=== PATIENT | female | born 1990 | race Caucasian/White ===

== ENCOUNTER 2017-06-29 20:29 | Inpatient (IN) | payer OTHER ==
[~2017-06-29] VITALS: Ht 157.4 cm; Wt 49.2 kg
[~2017-06-29 20:29] MED LIST: AMOXICILLIN250 MG PO; AMOXICILLIN500 M2 PO; BACTRIM DS 8001 TA1 PO; CIPRO250 MG PO; LANTUS SOL100 UNIT/1 SQ; LANTUS100 U/ML SC; MOTRIN400 MG PO; MOTRIN600 MG PO; NOVOLIN N100 U/ML SC; NOVOLOG FLEX100 U/ML SC; NOVOLOG1 UNIT/0.0 SC; NOVOLOG10 ML SQ; OFLOXACIN OTIC5 ML IA; PRENATAL1 TA1 PO; ULTRAM50 MG PO; ZOFRAN ODT4 MG SL
[2017-06-29 20:31] VITALS: BP 129/93
[2017-06-29 21:02] LABS: BASO # 0.2 10*3/uL (0.0-0.1); BASO % 1.2 % (0.0-1.0); EOS % 0.3 % (1.0-4.0); HEMATOCRIT 46.5 % (37.0-47.0); HEMOGLOBIN 15.2 g/dl (12.0-16.0); LYMPH # 3.9 10*3/uL (1.3-4.4); LYMPH % 31.5 % (27.0-41.0); MEAN CELL VOLUME 89.8 fl (81.0-99.0); MEAN CORPUSCULAR HGB 29.3 pg (27.0-31.0); MEAN CORPUSCULAR HGB CONC 32.7 g/dl (33.0-37.0); MEAN PLATELET VOLUME 9.4 fl (9.6-12.3); MONO # 0.6 10*3/uL (0.1-1.0); MONO % 4.6 % (3.0-9.0); NEUT # 7.6 10*3/uL (2.3-7.9); NEUT % 61.7 % (47.0-73.0); PLATELET COUNT AUTOMATED 439 10*3/uL (130-400); RED BLOOD COUNT 5.18 10*6/uL (4.10-5.10); RED CELL DISTRI WIDTH 13.3 % (0-14.5); WHITE BLOOD COUNT 12.3 10*3/uL (4.8-10.8)
[2017-06-29 21:05] VITALS: BP 131/93
[2017-06-29 21:15] VITALS: BP 131/93
[2017-06-29 21:19] LABS: ALBUMIN 3.5 gm/dl (3.1-4.5); CREATININE 1.38 mg/dL (0.55-1.02); POTASSIUM 4.1 mmol/L (3.5-5.1); TOTAL PROTEIN 8.4 gm/dL (6.4-8.2)
[2017-06-29 21:30] VITALS: BP 128/86
[2017-06-29 22:40] VITALS: BP 127/100
[2017-06-29 22:41] VITALS: BP 133/90
[2017-06-29 22:51] LABS: BILIRUBIN NEGATIVE (NEGATIVE); BLOOD 3+ (NEGATIVE); CLARITY CLEAR (CLEAR); COLOR YELLOW (YELLOW); GLUCOSE 3+ (NEGATIVE); KETONE 3+ (NEGATIVE); LEUKO ESTERASE NEGATIVE (NEGATIVE); NITRITE NEGATIVE (NEGATIVE); UROBILINOGEN 0.2 E.U./dl (0.2-1.0)
[2017-06-29 22:59] LABS: BACTERIA TRACE; EPITHELIAL CELLS 16-20
--- NOTE | 2017-06-29 23:58 | NUR ---
A 26, admitted to ICCU, under the services of REY Stephenson MD with a diagnosis of DKA. Chief complaint is NAUSEA. Patient arrived via stretcher from ER. Monitor applied. Initial assessment completed. Vital signs taken and recorded. REY STEPHENSON MD notified of admission to the unit. Orders received. See assessment for past medical history, medications and allergies. Patient and/or family oriented to unit. [facility] ICCU visitation policy reviewed. Clothing/patient valuable form completed. REINA EPPS
[2017-06-30] VITALS: BP 124/90
[2017-06-30 02:23] LABS: BUN 10 mg/dl (7-24); CHLORIDE 109 mmol/L (98-107); CREATININE 1.06 mg/dL (0.55-1.02); POTASSIUM 3.5 mmol/L (3.5-5.1); SODIUM 141 mmol/L (136-145)
[2017-06-30 04:00] VITALS: BP 128/87
[2017-06-30 06:00] LABS: BUN 9 mg/dl (7-24); CHLORIDE 113 mmol/L (98-107); CREATININE 1.02 mg/dL (0.55-1.02); POTASSIUM 3.4 mmol/L (3.5-5.1); SODIUM 141 mmol/L (136-145)
--- NOTE | 2017-06-30 07:28 | NUR ---
Shift chart check completed.24 HR chart check completed.
[2017-06-30 08:00] VITALS: BP 110/80
--- NOTE | 2017-06-30 08:30 | NUR ---
PARTNER ALLIANCE MANAGER VS. SLEEPING SOUNDLY. NURSE STATES PT NOT FEELING WELL. WILL FOLLOW FOR DC NEEDS.
--- NOTE | 2017-06-30 08:32 | NUR ---
ON ASSESSMENT PATIENT DROWSY BUT ORIENTED. SKIN WARM AND DRY. NO N/V AT THIS TIME. IV FLUIDS CONTINUE (D5.45NS) AT 200ML/HR. INSULIN DRIP IS AT 2UNITS/HR WITH BSBS AT 0812 OF 169. SEE ALL APPROPRIATE INTERVENTIONS.
[2017-06-30 10:03] LABS: BUN 8 mg/dl (7-24); CHLORIDE 112 mmol/L (98-107); CREATININE 0.99 mg/dL (0.55-1.02); POTASSIUM 3.5 mmol/L (3.5-5.1); SODIUM 139 mmol/L (136-145)
[2017-06-30 12:00] VITALS: BP 112/70
--- NOTE | 2017-06-30 12:44 | NUR ---
DR BUI (DR GHOSH'S RESIDENT) NOTIFIED THAT PT ASKING TO EAT. REVIEWED HER LABS AND GLUCOMETERS WITH HIM.
--- NOTE | 2017-06-30 13:34 | NUR ---
DR GHOSH HAS VISITED.
--- NOTE | 2017-06-30 14:08 | NUR ---
PT ATE ALL OF HER LUNCH. DR BUI HAD ENTERED ORDERS TO D/C INSULIN DRIP BUT WANTED HER TO HAVE SUBQ INSULIN FIRST. BSBS DONE-185, COVERED PER THE SLIDING SCALE WITH 3 UNITS HUMALOG INSULIN SUBQ. INSULIN DRIP CONTINUES AT 2UNITS/HR.
[2017-06-30 14:16] LABS: BUN 7 mg/dl (7-24); CHLORIDE 106 mmol/L (98-107); CREATININE 0.98 mg/dL (0.55-1.02); POTASSIUM 3.2 mmol/L (3.5-5.1); SODIUM 136 mmol/L (136-145)
[2017-06-30 16:00] VITALS: BP 115/66
[2017-06-30 20:00] VITALS: BP 111/77
--- NOTE | 2017-06-30 20:07 | NUR ---
1930 RESTING IN BED WITH EYES CLOSED. APPEARS TO BE SLEEPING. AWAKENS EASILY. NO C/O'S VOICED. IV FLUIDS AND K PHOSPH CONT. PULSE OX 98% ON RA. NO DISTRESS NOTED.
--- NOTE | 2017-06-30 22:10 | NUR ---
2129 TYLENOL 2 PO GIVEN FOR C/O'S PAIN UPPER BACK AND ALSO H/A, WILL MONITOR. 2209 RESTING IN BED WITH EYES CLOSED. EARLIER TYELNOL EFFECTIVE. KPAD INTACT TO BACK.
[2017-07-01] VITALS: BP 103/62
--- NOTE | 2017-07-01 01:28 | NUR ---
0000 RESTING IN BED WITH EYES CLOSED. APPEARS TO BE SLEEPING.
--- NOTE | 2017-07-01 02:07 | NUR ---
RESTING IN BED WITH EYES CLOSED. APPEARS TO BE SLEEPING.
[2017-07-01 04:00] VITALS: BP 101/71
[2017-07-01 04:35] LABS: BASO # 0.1 10*3/uL (0.0-0.1); BASO % 0.7 % (0.0-1.0); EOS # 0.2 10*3/uL (0.0-0.4); EOS % 1.8 % (1.0-4.0); LYMPH # 4.7 10*3/uL (1.3-4.4); LYMPH % 43.6 % (27.0-41.0); MEAN CELL VOLUME 87.6 fl (81.0-99.0); MEAN CORPUSCULAR HGB 29.2 pg (27.0-31.0); MEAN CORPUSCULAR HGB CONC 33.3 g/dl (33.0-37.0); MEAN PLATELET VOLUME 8.9 fl (9.6-12.3); MONO # 0.7 10*3/uL (0.1-1.0); MONO % 6.2 % (3.0-9.0); NEUT # 5.1 10*3/uL (2.3-7.9); NEUT % 47.3 % (47.0-73.0); PLATELET COUNT AUTOMATED 311 10*3/uL (130-400); RED BLOOD COUNT 3.87 10*6/uL (4.10-5.10); RED CELL DISTRI WIDTH 13.2 % (0-14.5); WHITE BLOOD COUNT 10.7 10*3/uL (4.8-10.8)
[2017-07-01 04:40] LABS: HEMATOCRIT 33.9 % (37.0-47.0); HEMOGLOBIN 11.3 g/dl (12.0-16.0)
[2017-07-01 05:05] LABS: ALBUMIN 2.5 gm/dl (3.1-4.5); ALKALINE PHOSPHATASE 104 U/L (45-117); BUN 6 mg/dl (7-24); CHLORIDE 111 mmol/L (98-107); CREATININE 0.71 mg/dL (0.55-1.02); MAGNESIUM 1.7 mg/dL (1.5-2.1); PHOSPHOROUS 1.4 mg/dL (2.5-4.9); POTASSIUM 3.2 mmol/L (3.5-5.1); SGOT/AST 13 IU/L (3-35); SGPT/ALT 13 U/L (12-78); SODIUM 141 mmol/L (136-145); TOTAL PROTEIN 5.4 gm/dL (6.4-8.2)
--- NOTE | 2017-07-01 06:11 | NUR ---
SLEPT WELL THIS SHIFT. REMAINS WITHOUT C/O'S. HEP LOCK INTACT. IV FLUIDS DONE. CONDITION GUARDED.
[2017-07-01 08:00] VITALS: BP 111/75
--- NOTE | 2017-07-01 08:34 | NUR ---
Awakened for VS. K+ at 3.2 . Potassium rish foods encouraged.
--- NOTE | 2017-07-01 10:15 | NUR ---
Dr. Huang in to evaulate. discharge pending dr. Edwards visit and completion of K-Phos
--- NOTE | 2017-07-01 11:42 | NUR ---
Dr. Edwards in . Dischage pending.
[2017-07-01] MEDS ORDERED: LANTUS SOL100 UNIT/1 SQ (13:02)
[2017-07-01] MEDS ORDERED: NOVOLOG10 ML SQ (13:02)
--- NOTE | 2017-07-01 15:02 | NUR ---
K-Phos complete . Discharge instruction given . Voiced understanding. Discharged to home.
== END 2017-07-01 15:05 | disposition home or self-care (01) | DRG 637 ==
LOC: ED 20:29 → EDHOLD 22:22 → ICCU 22:22
PROVIDERS: Internal Medicine Hospice and Palliative Medicine; Physician Assistant; ADMIT Internal Medicine
DX: E10.10 Type 1 diabetes mellitus with ketoacidosis without coma (principal); N17.0 Acute kidney failure with tubular necrosis; R65.11 Systemic inflammatory response syndrome (SIRS) of non-infectious origin with acute organ dysfunction; G93.41 Metabolic encephalopathy; E87.8 Other disorders of electrolyte and fluid balance, not elsewhere classified; E83.39 Other disorders of phosphorus metabolism; E87.6 Hypokalemia; D47.3 Essential (hemorrhagic) thrombocythemia; R31.29 Other microscopic hematuria; E10.65 Type 1 diabetes mellitus with hyperglycemia; F17.210 Nicotine dependence, cigarettes, uncomplicated; Z80.3 Family history of malignant neoplasm of breast; Z71.6 Tobacco abuse counseling; Z79.4 Long term (current) use of insulin

== ENCOUNTER 2017-07-19 18:49 | Inpatient (IN) | payer OTHER ==
[~2017-07-19] VITALS: Ht 157.4 cm; Wt 48.1 kg
--- NOTE | ~2017-07-19 | WRIGHTHP ---
[place], [place] PATIENT HISTORY AND PHYSICAL EXAM NAME: WALKER FENTON [facility] #: [id number] UNIT #: [id number] ROOM: 502 DOCTOR: KEYSHAWN CARNEY MD BIRTHDATE: [birth year] DOS: 07/19/2017 HISTORY OF PRESENT ILLNESS: The patient who has been admitted to the hospital last evening. She is reportedly having cough and shortness of breath from the night before and right upper abdominal pain with tenderness with nausea and vomiting. The patient was admitted to the hospital with the diabetic ketoacidosis only last week and she has a history of asthma also. The patient is having some chest pain with difficulty breathing with pain in the abdomen and repeated vomiting also. The patient is a known case of juvenile diabetes. ALLERGIES: There is no lethargy. MEDICATIONS: She is taking insulin glargine, Lantus SoloStar 30 units twice daily and insulin aspart, NovoLog 20 units t.i.d. PAST MEDICAL HISTORY: Acute renal failure with tubular necrosis, diabetic ketoacidosis, elevated alkaline phosphate level, hypokalemia, hypophosphatemia, intrauterine , leucocytosis, metabolic acidosis, metabolic encephalopathy, microscopic hematuria, perforation of right tympanic membrane, tachycardia, tachypnea, thrombocytopenia, tobacco abuse and heroin abuse. SOCIAL HISTORY: She has history of tobacco abuse in the past, also drug abuse in the past. FAMILY HISTORY: Mother, headaches and CA of the breast. Father is healthy. She has got one child normal delivery. PHYSICAL EXAMINATION: GENERAL: The patient is conscious, alert and oriented, complaining of some pain in the belly. HEENT: Her ENT examination unremarkable. Tongue is somewhat dry and coated. NECK: No neck rigidity. HEART: Somewhat tachycardic. No murmur. LUNGS: Clear. No crepitus or rhonchi. ABDOMEN: Is having tenderness in the epigastrium. Liver and spleen not palpable. Bowel sounds are normal. No distention of the abdomen. All the four limbs are normal, no neurological deficit observed. EXTREMITIES: No edema of the leg. VITAL SIGNS: Her blood pressure 112/70, oxygen 97, heart rate is 100 per minute, temperature 97.7. LABORATORY DATA: CBC on admission white count 15.5, hemoglobin 14.5, hematocrit 43.3, iodized calcium is 8.9 which is normal. Lactic acid is 2.4 which is slightly higher than normal. Hemoglobin is 13.8 which is quite high. Comprehensive metabolic profile showed glucose 262. Creatinine 1.09 indicating dehydration, carbon dioxide 14, alkaline phosphatase 143, lipase 5406. C-reactive protein 0.35, test is negative. Troponin level is normal. Serum ketone is positive at 1:16. Chest x-ray is showing no pneumonic infiltration. Urine examination shows 2+ glucose, 1+ bilirubin, 3+ ketone, 2+ proteins, 1+ bacteria. CT of the abdomen shows heterogeneously enhancing [place], [place] PATIENT HISTORY AND PHYSICAL EXAM NAME: WALKER FENTON [facility] #: [id number] UNIT #: [id number] ROOM: [facility] DOCTOR: KEYSHAWN CARNEY MD BIRTHDATE: [birth year] somewhat infiltrative lesion seen within the pancreatic head and uncinate process with mild adjacent edema extending. No pancreatic fluid collection or abscess identified. Her basic metabolic profile today shows glucose of 152, BUN 4, calcium is 2.6, chloride is 1.9, CO2 is 20 and total calcium is 7.3, lipase is 3233 lower than before. Her blood pressure today is 106/70, pulse 97, respirations 25, temperature 97.6. DIAGNOSES: Acute pancreatitis with acute bronchitis with juvenile diabetes with diabetic ketoacidosis with dehydration and hypokalemia, leukocytosis, metabolic acidosis, tachycardia, tobacco abuse and history of past history of drug abuse. PLAN OF TREATMENT: The patient will be admitted through the ICU and diabetic ketoacidosis. Protocol will be followed. This patient will be kept n.p.o. and she will receive Zofran 4 mg p.r.n. and her details are . KEYSHAWN CARNEY MD CM:HISPHYS:PATIENT HISTORY AND PHYSICAL EXAMINATION 1323 KEYSHAWN CARNEY MD 07/28/17 0834 interface
--- NOTE | 2017-07-19 11:25 | NUR ---
A 26, admitted to , under the services of REY Stephenson MD with a diagnosis of DIABETIC KETOACIDOSIS, PANCREATITIS. Chief complaint is RUQ PAIN. Patient arrived via stretcher from ER. Monitor applied. Initial assessment completed. Vital signs taken and recorded. REY STEPHENSON MD notified of admission to the unit. Orders received. See assessment for past medical history, medications and allergies. Patient and/or family oriented to unit. [address] visitation policy reviewed. Clothing/patient valuable form completed. QUYEN ROGERS
[2017-07-19 19:05] VITALS: BP 118/98
[2017-07-19 19:35] LABS: ABG BASE EXCESS -11.7 mmol/L (-2.0-2.0); ABG O2 SATURATION 99.1 % (95-97); ARTERIAL BLOOD GAS PCO2 22.6 mmHg (35-45); ARTERIAL BLOOD GAS PH 7.344 (7.35-7.45)
[2017-07-19 19:38] LABS: BASO # 0.1 10*3/uL (0.0-0.1); BASO % 0.6 % (0.0-1.0); EOS # 0.1 10*3/uL (0.0-0.4); EOS % 0.4 % (1.0-4.0); HEMATOCRIT 43.5 % (37.0-47.0); HEMOGLOBIN 14.5 g/dl (12.0-16.0); LYMPH # 2.1 10*3/uL (1.3-4.4); LYMPH % 13.3 % (27.0-41.0); MEAN CELL VOLUME 89.1 fl (81.0-99.0); MEAN CORPUSCULAR HGB 29.7 pg (27.0-31.0); MEAN CORPUSCULAR HGB CONC 33.3 g/dl (33.0-37.0); MEAN PLATELET VOLUME 9.2 fl (9.6-12.3); MONO # 0.7 10*3/uL (0.1-1.0); MONO % 4.4 % (3.0-9.0); NEUT # 12.5 10*3/uL (2.3-7.9); NEUT % 80.5 % (47.0-73.0); PLATELET COUNT AUTOMATED 403 10*3/uL (130-400); RED BLOOD COUNT 4.88 10*6/uL (4.10-5.10); RED CELL DISTRI WIDTH 13.6 % (0-14.5); WHITE BLOOD COUNT 15.5 10*3/uL (4.8-10.8)
[2017-07-19 19:42] VITALS: BP 112/72
[2017-07-19 19:55] LABS: ALBUMIN 3.7 gm/dl (3.1-4.5); ALKALINE PHOSPHATASE 143 U/L (45-117); B-hCG (QUALITATIVE) NEGATIVE (NEGATIVE); BUN 8 mg/dl (7-24); CHLORIDE 106 mmol/L (98-107); CREATININE 1.09 mg/dL (0.55-1.02); MAGNESIUM 1.6 mg/dL (1.5-2.1); POTASSIUM 3.9 mmol/L (3.5-5.1); SGOT/AST 9 IU/L (3-35); SGPT/ALT 21 U/L (12-78); SODIUM 139 mmol/L (136-145); TOTAL PROTEIN 7.8 gm/dL (6.4-8.2)
[2017-07-19 19:57] LABS: LIPASE 5406 U/L (73-393); TROPONIN I < 0.015 ng/ml (<0.045)
--- NOTE | 2017-07-19 20:01 | NUR ---
PATIENT STATES THAT SHE FEELS A LOT BETTER.
[2017-07-19 20:26] LABS: BILIRUBIN 1+ (NEGATIVE); BLOOD TRACE-INTACT (NEGATIVE); CLARITY SL CLOUDY (CLEAR); COLOR YELLOW (YELLOW); GLUCOSE 2+ (NEGATIVE); KETONE 3+ (NEGATIVE); LEUKO ESTERASE NEGATIVE (NEGATIVE); NITRITE NEGATIVE (NEGATIVE); PH 5.5 (5.0-9.0); SPECIFIC GRAVITY >= 1.030 (1.005-1.030); UROBILINOGEN 0.2 E.U./dl (0.2-1.0)
--- NOTE | 2017-07-19 20:31 | NUR ---
PATIENT TO CAT SCAN.
[2017-07-19 20:36] LABS: BACTERIA 1+
[2017-07-19 20:37] LABS: EPITHELIAL CELLS 16-20
[2017-07-19 23:35] VITALS: BP 130/92
--- NOTE | 2017-07-19 23:49 | NUR ---
CALLED DR GHOSH FOR ORDERS. ORDERS RECEIVED. PT TRANSFERRED TO ICU PER DR GHOSH.
[2017-07-19 23:51] VITALS: BP 133/96
--- NOTE | 2017-07-19 23:51 | NUR ---
PATIENT TRANSFERRED TO ICCU. INSULIN GTT INFUSING. DENIES NAUSEA. C/O RT UPPER QUADRANT PAIN. NO SIGNS OF DISTRESS.
--- NOTE | 2017-07-20 00:05 | NUR ---
24 HR chart check completed.
[2017-07-20 00:29] LABS: BUN 5 mg/dl (7-24); CHLORIDE 108 mmol/L (98-107); CREATININE 0.72 mg/dL (0.55-1.02); POTASSIUM 3.7 mmol/L (3.5-5.1); SODIUM 139 mmol/L (136-145)
[2017-07-20 04:08] VITALS: BP 101/66
[2017-07-20 04:58] LABS: BUN 4 mg/dl (7-24); CHLORIDE 109 mmol/L (98-107); CREATININE 0.67 mg/dL (0.55-1.02); SODIUM 139 mmol/L (136-145)
[2017-07-20 05:02] LABS: LIPASE 3233 U/L (73-393); POTASSIUM 2.6 mmol/L (3.5-5.1)
[2017-07-20 08:00] VITALS: BP 106/70
[2017-07-20 12:00] VITALS: BP 103/67
[2017-07-20 16:00] VITALS: BP 103/75
[2017-07-20 20:00] VITALS: BP 95/62
--- NOTE | 2017-07-20 20:28 | NUR ---
PT MEDICATED WITH NUBAIN 5MG IV FOR C/O ABD PAIN.
--- NOTE | 2017-07-20 21:05 | NUR ---
PT STATED NUBAIN WAS EFFECTIVE IN EASING HER ABD PAIN.
[2017-07-21] VITALS: BP 90/52
[2017-07-21 04:00] VITALS: BP 94/60
[2017-07-21 05:04] LABS: BUN 3 mg/dl (7-24); CHLORIDE 113 mmol/L (98-107); CREATININE 0.44 mg/dL (0.55-1.02); LIPASE 1483 U/L (73-393); POTASSIUM 3.8 mmol/L (3.5-5.1); SODIUM 144 mmol/L (136-145)
[2017-07-21 08:00] VITALS: BP 98/61
--- NOTE | 2017-07-21 08:21 | NUR ---
PT MEDICATED WITH NUBAIN 5MG IV FOR C/O ABD PAIN.
--- NOTE | 2017-07-21 09:32 | NUR ---
PT RETURNED FROM MRI AND WANTING TO EAT AND DRINK. PT STATING SHE MAY SIGN OUT IF SHE DOESNT GET TO EAT AND DRINK. I EXPLAINED THE IMPORTANCE OF FOLLOWING THE CORRECT TREATMENT IN ORDER TO FEEL BETTER. I DID CALL DR SANCHES TO CLARIFY NPO ORDER AND HE STATED PT IS TO REMAIN NPO AND TO CALL HIM WITH MRI REPORT. PT WAS MADE AWARE OF 'S ORDER TO REMAIN NPO.
--- NOTE | 2017-07-21 10:22 | NUR ---
DR SANCHES MADE AWARE OF PT'S MRI RESULTS. ORDER RECEIVED TO ALLOW PT TO HAVE FULL LIQUID DIET.
[2017-07-21 12:00] VITALS: BP 120/83
[2017-07-21 16:00] VITALS: BP 112/81
--- NOTE | 2017-07-21 16:30 | NUR ---
PATIENT ARRIVED TO FLOOR AND ORIENTED TO ROOM, SEE SHIFT ASSESSMENT AND VITAL SIGNS FOR DETAILS.
--- NOTE | 2017-07-21 17:05 | NUR ---
REPORT GIVEN TO SUNITHA ON 5E AND PT TRANSFERED TO ROOM 502 VIA WHEELCHAIR.
[2017-07-21 20:00] VITALS: BP 114/81
--- NOTE | 2017-07-21 20:54 | NUR ---
PT REPORTS PAIN IN LLQ, REQUESTED AND ADMINSITERED PRN PAIN MEDICATION ORDERED WILL MONITOR EFFECTS
[2017-07-22] VITALS: BP 103/72
--- NOTE | 2017-07-22 01:00 | NUR ---
PATIENT RESTING IN BED WITH EYES CLOSED. NO SIGNS OR SYMPTOMS OF DISTRESS NOTED. AROUSES TO VERBAL STIMULI. DENIES COMPLAINTS OF PAIN OR DISCOMFORT. WILL CONTINUE TO MONITOR. CALL LIGHT IN REACH.
[2017-07-22 06:18] LABS: BASO % 0.5 % (0.0-1.0); EOS # 0.1 10*3/uL (0.0-0.4); EOS % 1.7 % (1.0-4.0); HEMATOCRIT 33.1 % (37.0-47.0); HEMOGLOBIN 10.8 g/dl (12.0-16.0); LYMPH % 52.6 % (27.0-41.0); MEAN CELL VOLUME 91.2 fl (81.0-99.0); MEAN CORPUSCULAR HGB 29.8 pg (27.0-31.0); MEAN CORPUSCULAR HGB CONC 32.6 g/dl (33.0-37.0); MEAN PLATELET VOLUME 9.5 fl (9.6-12.3); MONO # 0.4 10*3/uL (0.1-1.0); MONO % 5.4 % (3.0-9.0); NEUT % 39.5 % (47.0-73.0); PLATELET COUNT AUTOMATED 261 10*3/uL (130-400); RED BLOOD COUNT 3.63 10*6/uL (4.10-5.10); RED CELL DISTRI WIDTH 14.2 % (0-14.5); WHITE BLOOD COUNT 7.6 10*3/uL (4.8-10.8)
--- NOTE | 2017-07-22 06:36 | NUR ---
PATIENT MEDICATED WITH NUBAIN FOR COMPLAINTS OF LL QUAD PAIN. WILL MONITOR FOR EFFECTIVENESS. CALL LIGHT IN REACH.
[2017-07-22 06:52] LABS: ALBUMIN 2.4 gm/dl (3.1-4.5); ALKALINE PHOSPHATASE 104 U/L (45-117); BUN 5 mg/dl (7-24); CHLORIDE 109 mmol/L (98-107); CREATININE 0.43 mg/dL (0.55-1.02); POTASSIUM 3.3 mmol/L (3.5-5.1); SGOT/AST 48 IU/L (3-35); SGPT/ALT 27 U/L (12-78); SODIUM 143 mmol/L (136-145); TOTAL PROTEIN 5.3 gm/dL (6.4-8.2)
[2017-07-22 08:00] VITALS: BP 110/76
[2017-07-22 12:00] VITALS: BP 133/94
[2017-07-22] MEDS ORDERED: LANTUS SOL100 UNIT/1 SQ (13:23)
[2017-07-22] MEDS ORDERED: Insulin Lispro, Reco SC (13:23)
--- NOTE | 2017-07-22 14:45 | NUR ---
Discharge instructions reviewed with patient/family. Patient receptive and verbalizes understanding. Follow-up care arranged. Written instructions given to patient/family. JATINDER CLEMENS
== END 2017-07-22 14:45 | disposition home or self-care (01) | DRG 438 ==
LOC: ED 18:49 → 5E 22:34 → EDHOLD 22:34 → ICCU 22:34 → 4E 22:43 → ICCU 23:45 → 5E 07-21 16:55
PROVIDERS: Emergency Medicine Emergency Medical Services; Internal Medicine Hospice and Palliative Medicine; ADMIT Internal Medicine
DX: K85.90 Acute pancreatitis without necrosis or infection, unspecified (principal); N17.0 Acute kidney failure with tubular necrosis; E43 Unspecified severe protein-calorie malnutrition; E10.10 Type 1 diabetes mellitus with ketoacidosis without coma; E87.8 Other disorders of electrolyte and fluid balance, not elsewhere classified; E86.0 Dehydration; Z68.1 Body mass index [BMI] 19.9 or less, adult; J20.9 Acute bronchitis, unspecified; E87.6 Hypokalemia; R31.29 Other microscopic hematuria; D47.3 Essential (hemorrhagic) thrombocythemia; F17.210 Nicotine dependence, cigarettes, uncomplicated; Z79.899 Other long term (current) drug therapy; Z80.3 Family history of malignant neoplasm of breast; Z71.6 Tobacco abuse counseling

== ENCOUNTER 2017-10-31 04:50 | Emergency (ER) | payer OTHER ==
[~2017-10-31] VITALS: Ht 157.4 cm; Wt 49.9 kg
[~2017-10-31 04:50] MED LIST changes: +Insulin Lispro, Reco SC
[2017-10-31 04:53] VITALS: BP 127/97
[2017-10-31] MEDS ORDERED: NOVOLIN 70100 UNIT/1 SQ (04:57)
[2017-10-31] MEDS ORDERED: NOVOLOG MI100 UNIT/2 SQ (04:58)
[2017-10-31 05:20] LABS: BASO # 0.1 10*3/uL (0.0-0.1); BASO % 0.6 % (0.0-1.0); EOS # 0.1 10*3/uL (0.0-0.4); EOS % 0.9 % (1.0-4.0); HEMATOCRIT 37.9 % (37.0-47.0); HEMOGLOBIN 12.4 g/dl (12.0-16.0); LYMPH # 3.8 10*3/uL (1.3-4.4); LYMPH % 35.1 % (27.0-41.0); MEAN CORPUSCULAR HGB 29.5 pg (27.0-31.0); MEAN CORPUSCULAR HGB CONC 32.7 g/dl (33.0-37.0); MEAN PLATELET VOLUME 9.4 fl (9.6-12.3); MONO # 0.8 10*3/uL (0.1-1.0); MONO % 7.3 % (3.0-9.0); NEUT % 55.5 % (47.0-73.0); PLATELET COUNT AUTOMATED 384 10*3/uL (130-400); RED BLOOD COUNT 4.21 10*6/uL (4.10-5.10); RED CELL DISTRI WIDTH 14.5 % (0-14.5); WHITE BLOOD COUNT 10.8 10*3/uL (4.8-10.8)
[2017-10-31 05:35] LABS: BUN 19 mg/dl (7-24); CHLORIDE 95 mmol/L (98-107); CREATININE 1.19 mg/dL (0.55-1.02); POTASSIUM 4.1 mmol/L (3.5-5.1); SODIUM 132 mmol/L (136-145)
[2017-10-31 05:43] LABS: BILIRUBIN NEGATIVE (NEGATIVE); BLOOD NEGATIVE (NEGATIVE); CLARITY CLEAR (CLEAR); COLOR YELLOW (YELLOW); GLUCOSE 3+ (NEGATIVE); KETONE TRACE (NEGATIVE); LEUKO ESTERASE NEGATIVE (NEGATIVE); NITRITE NEGATIVE (NEGATIVE); PH 5.5 (5.0-9.0); SPECIFIC GRAVITY <= 1.005 (1.005-1.030); UROBILINOGEN 0.2 E.U./dl (0.2-1.0)
[2017-10-31] MEDS ORDERED: ULTRAM50 MG PO (06:13)
[2017-10-31] MEDS ORDERED: DOXYCYCLINE HY100 M3 PO (06:13)
== END 2017-10-31 06:57 | disposition home or self-care (01) ==
LOC: ED 04:50
PROVIDERS: Emergency Medicine Emergency Medical Services
DX: N90.7 Vulvar cyst (principal); E10.65 Type 1 diabetes mellitus with hyperglycemia; E10.11 Type 1 diabetes mellitus with ketoacidosis with coma; Z87.891 Personal history of nicotine dependence; Z79.4 Long term (current) use of insulin

== ENCOUNTER 2018-06-17 04:32 | Emergency (ER) | payer OTHER ==
[~2018-06-17] VITALS: Ht 165.1 cm; Wt 54.4 kg
[~2018-06-17 04:32] MED LIST changes: +DOXYCYCLINE HY100 M3 PO; +NOVOLIN 70100 UNIT/1 SQ; +NOVOLOG MI100 UNIT/2 SQ
[2018-06-17 04:35] VITALS: BP 134/98
[2018-06-17] MEDS ORDERED: CLINDAMYCIN HC300 MG PO (04:42)
== END 2018-06-17 04:58 | disposition home or self-care (01) ==
LOC: ED 04:32
DX: K02.9 Dental caries, unspecified (principal); E10.9 Type 1 diabetes mellitus without complications; F17.200 Nicotine dependence, unspecified, uncomplicated; Z79.4 Long term (current) use of insulin

== ENCOUNTER 2018-11-15 15:22 | Inpatient (IN) | payer OTHER ==
[~2018-11-15] VITALS: Ht 157.4 cm; Wt 36.8 kg
--- NOTE | ~2018-11-15 | EKG ---
[place], [place] ELECTROCARDIOGRAM REPORT NAME: WALKER FENTON UNIT #: [id number] ROOM: [facility] DOCTOR: LUCY DRAFT REPORT BIRTHDATE: [birth year] [facility] Test Date: 2018-11-17 Test Time: 17:00:04 Pat Name: WALKER FENTON Department: Room: [place] [address] Gender: F Industrial Sewer: Rimma Patiño : 1990 Requested By: PAULINA VELÁSQUEZ Order Number: [id number] Reading MD: Damion Mcnally MD Measurements Intervals [place] Rate: 125 P: 79 SC: 134 QRS: 86 QRSD: 79 T: 47 QT: 313 QTc: 452 Interpretive Statements Sinus tachycardia Compared to ECG 11/16/2018 14:14:53 No significant change Electronically Signed On 11-18-2018 15:48:20 PST by Damion Mcnally MD CM:EKGRPT:ELECTROCARDIOGRAM REPORT 1700 [id number] PAULINA AYALA DRAFT REPORT PAULINA VELÁSQUEZ
--- NOTE | ~2018-11-15 | EKG ---
[place], [place] ELECTROCARDIOGRAM REPORT NAME: WALKER FENTON UNIT #: [id number] ROOM: [facility] DOCTOR: LUCY DRAFT REPORT BIRTHDATE: [birth year] [facility] Test Date: 2018-11-16 Test Time: 14:14:53 Pat Name: WALKER FENTON Department: Room: [place] [address] Gender: F Clinical Abstractor: Maria L Shrestha : 1990 Requested By: PAULINA VELÁSQUEZ Order Number: [id number] Reading MD: Damion Mcnally MD Measurements Intervals [place] Rate: 114 P: 26 AR: 107 QRS: 91 QRSD: 76 T: 54 QT: 257 QTc: 354 Interpretive Statements Sinus tachycardia Borderline right axis deviation Artifact in lead(s) I Electronically Signed On 11-17-2018 4:07:06 PST by Damion Mcnally MD CM:EKGRPT:ELECTROCARDIOGRAM REPORT [id number] [id number] PAULINA AYALA DRAFT REPORT PAULINA VELÁSQUEZ
[2018-11-15 15:22] VITALS: BP 123/89
[~2018-11-15 15:22] MED LIST changes: +CLINDAMYCIN HC300 MG PO
[2018-11-15 16:00] LABS: BASO % 0.3 % (0.0-1.0); EOS % 0.4 % (1.0-4.0); HEMATOCRIT 40.9 % (37.0-47.0); HEMOGLOBIN 13.5 g/dl (12.0-16.0); LYMPH # 1.3 10*3/uL (1.3-4.4); MEAN CORPUSCULAR HGB 28.7 pg (27.0-31.0); MEAN PLATELET VOLUME 9.6 fl (9.6-12.3); MONO # 0.4 10*3/uL (0.1-1.0); MONO % 4.5 % (3.0-9.0); NEUT # 7.3 10*3/uL (2.3-7.9); NEUT % 80.5 % (47.0-73.0); PLATELET COUNT AUTOMATED 482 10*3/uL (130-400); WHITE BLOOD COUNT 9.1 10*3/uL (4.8-10.8)
[2018-11-15 16:05] LABS: ALKALINE PHOSPHATASE 208 U/L (45-117); BUN 16 mg/dl (7-24); CHLORIDE 89 mmol/L (98-107); CREATININE 1.17 mg/dL (0.55-1.02); LIPASE 52 U/L (73-393); POTASSIUM 4.6 mmol/L (3.5-5.1); SGOT/AST 26 IU/L (3-35); SGPT/ALT 26 U/L (12-78); SODIUM 130 mmol/L (136-145); TOTAL PROTEIN 7.5 gm/dL (6.4-8.2)
[2018-11-15 16:08] LABS: BETA-HCG, QUANT < 1.0 mIU/mL (1-3)
--- NOTE | 2018-11-15 16:08 | NUR ---
GLUCOSE CALLED CRITICAL AT THIS TIME 669.
[2018-11-15 18:03] VITALS: BP 118/76
[2018-11-15 18:40] VITALS: BP 122/80
--- NOTE | 2018-11-15 18:40 | NUR ---
Time: 1839 A 27 year old F admitted to under services of DR. DAVINA NAM,[facility]. Pt. arrived via bed from ER. Chief complaint: ELEVATED BSG. RUI LEIVA
[2018-11-15] MEDS ORDERED: NOVOLOG10 ML SC (18:53)
[2018-11-15] MEDS ORDERED: BASAG SOL SC (18:53)
--- NOTE | 2018-11-15 19:40 | NUR ---
DR GHOSH CONTACTED REGARDING ADMISSION ORDERS. INFORMED OF REPEAT BSG 400. ALSO INFORMED PATIENT ADMITS TO USING 1 STRIP SUBOXONE DAILY FOR "A COUPLE OF MONTHS." PATIENT DOES NOT HAVE PRESCRIPTION BUT TAKES HER BOYFRIENDS. PATIENT RESTLESS AND AGITATED. HAS YET TO PROVIDED URINE
[2018-11-15 20:00] VITALS: BP 131/94
--- NOTE | 2018-11-15 20:56 | NUR ---
AFTER INFORMING PATIENT NO MEDS WILL BE PROVIDED UNTIL URINE IS OBTAINED, PATIENT PROVIDED URINE AND SPECIMENS SENT. 1 TIME DOSE ATIVAN ADMINISTERED. ALSO MEDICATED WITH TYLENOL PER PRN OREDR FOR COMPLAINTS OF BILATERAL FEET PAIN RATING A 6. IV FLUIDS INITIATED.
[2018-11-15 21:58] LABS: BILIRUBIN NEGATIVE (NEGATIVE); BLOOD NEGATIVE (NEGATIVE); CLARITY CLEAR (CLEAR); COLOR YELLOW (YELLOW); GLUCOSE 3+ (NEGATIVE); KETONE 1+ (NEGATIVE); LEUKO ESTERASE NEGATIVE (NEGATIVE); NITRITE NEGATIVE (NEGATIVE); UROBILINOGEN 0.2 E.U./dl (0.2-1.0)
[2018-11-15 22:07] LABS: URINE AMPHETAMINES < 1000 (1000ng/ml); URINE BARBITURATES < 200 (200ng/ml); URINE BENZODIAZEPINES < 200 (200ng/ml); URINE CANNABINOIDS (THC) < 50 (50ng/ml); URINE COCAINE > 300 (300ng/ml); URINE METHADONE < 300 (300ng/ml); URINE OPIATES < 300 (300ng/ml)
[2018-11-15 22:09] LABS: URINE PHENCYCLIDINE < 25 (25ng/ml)
[2018-11-15 22:13] LABS: BACTERIA 1+; EPITHELIAL CELLS 20-25; RBC 0-2 rbc/hpf (0-2); YEAST 1+
--- NOTE | 2018-11-15 22:36 | NUR ---
PATIENT HEARD VOMITING LOUDLY. MEDICATED WITH BENADRYL IV PER PRN ORDER. WILL MONITOR
[2018-11-16] VITALS: BP 117/82
--- NOTE | 2018-11-16 02:20 | NUR ---
TYLENOL GIVEN FOR COMPLAINTS OF LEG PAIN/CRAMPS. WILL CONTINUE TO MONITOR AND REASSESS.
--- NOTE | 2018-11-16 02:57 | NUR ---
TYLENOL EFFECTIVE FOR LEG CRAMPS. PT RESTING COMFORTABLY.
[2018-11-16 06:48] LABS: BUN 14 mg/dl (7-24); CHLORIDE 93 mmol/L (98-107); CREATININE 0.53 mg/dL (0.55-1.02); POTASSIUM 3.9 mmol/L (3.5-5.1); SODIUM 129 mmol/L (136-145)
[2018-11-16 07:51] VITALS: BP 142/84
--- NOTE | 2018-11-16 08:21 | NUR ---
PT PLEASENT AND COOPERATIVE. DENIES PAIN, N/V/D, CHEST PAIN, DISTRESS, ANXIETY OR SOB. ASSSISTED PT WITH ORDERING BREAKFAST. GAVE PT SUPPLIES FOR BED BATH HOWEVER, PT STATED "I'M NOT A MORNING PERSON CAN I GO BACK TO SLEEP". EDUCATED PT ON NEED TO KEEP ARM STRAIGHT AND NOT TO LAY ON IV TUBING TO PREVENT OCCLUSION OF IV. PT VERBALIZED UNDERSTANDING. TOLD PT TO TURN SALON DESIGNER LIGHT WHEN SHE IS READY TO BATH SO SHE CAN BE ASSITED WITH GOWN D/T IV. BED IN LOWEST POSTION-CALL LIGHT WITHIN REACH. LESLY OAKES SPNRCC
--- NOTE | 2018-11-16 08:44 | NUR ---
PT QUICKELY ATE BREAKFAST UPON ENCOURAGMENT HOWEVER, INSISTED ON RETURNING TO SLEEP. PT REFUSES BATHING OR APPLICATON OF EDDIE HOSE AT THIS TIME-WILL TRY LATER. PT DENIES SOB, N/V/D, PAIN OR ANXIETY. PT DENIES ANY QUESTIONS/CONCERNS AT THIS TIME. REMINDED TO PUT LEAD PHP DEVELOPER LIGHT WHEN READY TO BATHE FOR ASSISTANCE WITH GOWN. BED IN LOWEST POSTION-CALL LIGHT WITHIN REACH. LESLY OAKES SPNRCC
--- NOTE | 2018-11-16 09:17 | NUR ---
PT RESTING QUIETLY. BED IN LOWEST POSTION-CALL LIGHT WITHIN REACH. LESLY OAKES SPNRCC
[2018-11-16 12:00] VITALS: BP 123/83
--- NOTE | 2018-11-16 12:00 | NUR ---
PT C/O NAUSEA WHILE INGESTING LUNCH. MEDICATED WITH ORDERED DOSE OF DIPHENYDRAMINE HYDROCHLORIDE-PT TOLERATED WELL. WILL ASSESS FOR EFFECTIVENESS. LESLY OAKES SPNRCC
--- NOTE | 2018-11-16 12:00 | NUR ---
PT'S HEART RATE 110 DURING VITAL SIGNS ASSESSMENT-PT HAD ABG'S DRAWN, ADDITIONAL BLOOD TESTS DRAWN AND THE PHYSICIAN HAD BEEN IN TO TALK WITH PT IMMEDIATELY PRIOR TO ASSESSMENT. ALSO TO BE NOTED THAT PT'S HEAT RATE HAS BEEN RUNNING IN THE 100-115 RANGE SINCE ADMISSION. PT DENIES ANY QUESTOINS/CONCERNS, SOB, PAIN OR DIARRHEA. LESLY OAKES SPNRCC
--- NOTE | 2018-11-16 12:30 | NUR ---
IN TO SEE PT, RESP THERAPY IN TO DRAW MARQUIS'S LESLY SLADE SPNRCC
[2018-11-16 12:33] LABS: PHOSPHOROUS 2.1 mg/dL (2.5-4.9)
[2018-11-16 12:38] LABS: ABG BASE EXCESS -1.2 mmol/L (-2.0-2.0); ABG HCO3 20.4 mmol/l (22-26); ABG O2 SATURATION 99.6 % (95-97); ARTERIAL BLOOD GAS PCO2 26.2 mmHg (35-45); ARTERIAL BLOOD GAS PH 7.502 (7.35-7.45)
--- NOTE | 2018-11-16 12:53 | NUR ---
RE-ASSESSED PT FOR EFFECTIVENESS OF DIPHENHYDRAMINE HYDROCHLORIDE FOR C/O NAUSEA-PT STATES IT WAS EFFECTIVE. PT RESTING QUIETLY NOW. BED IN LOWEST POSTION-CALL LIGHT WITHIN REACH. LESLY OAKES SPVERONICACC
--- NOTE | 2018-11-16 14:03 | NUR ---
PT TRANSFERRED TO ICU PER ORDER. NURSE TO NURSE REPORT GIVEN.
--- NOTE | 2018-11-16 14:10 | NUR ---
RECEIVED FROM [facility] VIA BED FOR POSSIBLE DKA. IV'S PLACED TO RT UPPER ARM & RT WRIST. S TACH ON MONITOR RATE 120'S. IVF BOLUS STARTED.
--- NOTE | 2018-11-16 14:15 | NUR ---
RECIEVED PT AND REPORT FROM QUYEN AMBROSIO AND ICCU ORDERS FROM DR MEZA. BS IS 310. INSULIN GTT STARTED AT 4U/H.
[2018-11-16 14:25] LABS: BASO % 0.2 % (0.0-1.0); EOS % 0.1 % (1.0-4.0); HEMATOCRIT 36.1 % (37.0-47.0); HEMOGLOBIN 12.8 g/dl (12.0-16.0); LYMPH # 2.1 10*3/uL (1.3-4.4); LYMPH % 12.3 % (27.0-41.0); MEAN CELL VOLUME 84.3 fl (81.0-99.0); MEAN CORPUSCULAR HGB 29.9 pg (27.0-31.0); MEAN CORPUSCULAR HGB CONC 35.5 g/dl (33.0-37.0); MONO % 6.2 % (3.0-9.0); NEUT # 13.4 10*3/uL (2.3-7.9); NEUT % 80.5 % (47.0-73.0); PLATELET COUNT AUTOMATED 472 10*3/uL (130-400); RED BLOOD COUNT 4.28 10*6/uL (4.10-5.10); RED CELL DISTRI WIDTH 12.7 % (0-14.5); WHITE BLOOD COUNT 16.7 10*3/uL (4.8-10.8)
[2018-11-16 14:42] LABS: ALBUMIN 2.6 gm/dl (3.1-4.5); ALKALINE PHOSPHATASE 163 U/L (45-117); BUN 16 mg/dl (7-24); CHLORIDE 95 mmol/L (98-107); CREATININE 0.81 mg/dL (0.55-1.02); POTASSIUM 3.2 mmol/L (3.5-5.1); SGOT/AST 11 IU/L (3-35); SGPT/ALT 18 U/L (12-78); SODIUM 133 mmol/L (136-145); TOTAL PROTEIN 6.2 gm/dL (6.4-8.2)
[2018-11-16 16:00] VITALS: BP 128/88
[2018-11-16 18:38] LABS: BUN 13 mg/dl (7-24); CHLORIDE 101 mmol/L (98-107); CREATININE 0.46 mg/dL (0.55-1.02); PHOSPHOROUS 2.3 mg/dL (2.5-4.9); POTASSIUM 2.8 mmol/L (3.5-5.1); SODIUM 135 mmol/L (136-145)
[2018-11-16 20:00] VITALS: BP 126/89
[2018-11-16 22:38] LABS: BUN 13 mg/dl (7-24); CHLORIDE 97 mmol/L (98-107); CREATININE 0.59 mg/dL (0.55-1.02); POTASSIUM 3.3 mmol/L (3.5-5.1); SODIUM 134 mmol/L (136-145)
[2018-11-17] VITALS: BP 123/95
--- NOTE | 2018-11-17 00:05 | NUR ---
PATIENT RESTING QUIETLY WITH EYES CLOSED. NO SIGNS OR SYMPTOMS OF DISTRESS SEEN ON ROOM AIR. RESPIRATIONS ARE QUIET AND UNLABORED. CALL LIGHT WITHIN REACH. RN WILL CONTINUE TO MONITOR
--- NOTE | 2018-11-17 01:45 | NUR ---
PROVIDED WITH WARM BLANKETS AT THIS TIME. PATIENT DENIES OTHER REQUESTS. CALL IGHT WITHIN REACH. RN WILL CONTINUE TO MONITOR
[2018-11-17 02:02] LABS: BUN 11 mg/dl (7-24); CHLORIDE 97 mmol/L (98-107); CREATININE 0.75 mg/dL (0.55-1.02); POTASSIUM 3.3 mmol/L (3.5-5.1); SODIUM 135 mmol/L (136-145)
--- NOTE | 2018-11-17 02:52 | NUR ---
PATIENT MEDICATED WITH TYLENOL PER DRS ORDERS FOR COMPLAINTS OF HEADACHE. SEE EMAR. RN WILL CONTINUE TO MONITOR
[2018-11-17 04:00] VITALS: BP 130/88
--- NOTE | 2018-11-17 05:04 | NUR ---
PATIENT MEDICATED WITH IV BENADRYL PER DRS ORDERS FOR C/O NAUSEA. RN WILL CONTINUE TO MONITOR
[2018-11-17 06:27] LABS: BASO # 0.1 10*3/uL (0.0-0.1); BASO % 0.3 % (0.0-1.0); EOS % 0.1 % (1.0-4.0); HEMATOCRIT 36.3 % (37.0-47.0); HEMOGLOBIN 12.5 g/dl (12.0-16.0); LYMPH % 10.8 % (27.0-41.0); MEAN CELL VOLUME 85.2 fl (81.0-99.0); MEAN CORPUSCULAR HGB 29.3 pg (27.0-31.0); MEAN CORPUSCULAR HGB CONC 34.4 g/dl (33.0-37.0); MONO % 5.4 % (3.0-9.0); NEUT # 15.4 10*3/uL (2.3-7.9); NEUT % 82.7 % (47.0-73.0); PLATELET COUNT AUTOMATED 402 10*3/uL (130-400); RED BLOOD COUNT 4.26 10*6/uL (4.10-5.10); RED CELL DISTRI WIDTH 12.7 % (0-14.5); WHITE BLOOD COUNT 18.6 10*3/uL (4.8-10.8)
[2018-11-17 06:56] LABS: PHOSPHOROUS 1.8 mg/dL (2.5-4.9)
[2018-11-17 06:58] LABS: BUN 12 mg/dl (7-24); CHLORIDE 97 mmol/L (98-107); CREATININE 0.74 mg/dL (0.55-1.02); POTASSIUM 2.8 mmol/L (3.5-5.1); SODIUM 134 mmol/L (136-145)
--- NOTE | 2018-11-17 07:30 | NUR ---
INSULIN GTT STOPPED AT THIS TIME PER DR ESCOBEDO ORDER DUE TO HYPOKALEMIA OF 2.8
[2018-11-17 08:00] VITALS: BP 144/96
--- NOTE | 2018-11-17 09:00 | NUR ---
[employer] in to talk to patient. Patient states lives at home with her mother. There are 0 steps in the home. Physician: Dr. Tucker Pharmacy: [facility] Home health services: none Patient's level of ADLs: INDEPENDENT Patient has working utilities: yes DME: none Follow-up physician's appointment after d/c: she prefers to make her own follow up appt after discharge Does patient want to access PORTAL?: no Discharge plan discussed with patient. She lives at home with her mother. She is independent in her ADLs and ambulation. Discussed home health care services and she denies any home needs. When medically stable she will be discharged to home. DEYA RENTERIA
[2018-11-17 10:26] LABS: BUN 11 mg/dl (7-24); CHLORIDE 98 mmol/L (98-107); CREATININE 0.52 mg/dL (0.55-1.02); SODIUM 132 mmol/L (136-145)
[2018-11-17 10:27] LABS: PHOSPHOROUS 3.5 mg/dL (2.5-4.9)
[2018-11-17 10:29] LABS: POTASSIUM 4.8 mmol/L (3.5-5.1)
--- NOTE | 2018-11-17 11:22 | NUR ---
PT MEDICATED WITH VISTARIL FOR ANXIETY AND REQUIP FOR RESTLESS LEGS.
--- NOTE | 2018-11-17 11:22 | NUR ---
INSULIN GTT RESTARTED AT THIS TIME AT 8UNITS/HR DUE TO BEDSIDE GLUCOSE OF 405.
[2018-11-17 12:00] VITALS: BP 141/94
--- NOTE | 2018-11-17 13:30 | NUR ---
1300 STAT GLUCOSE REFLEX 530. DR VELÁSQUEZ IN ICCU AND AWARE. INSULIN GTT INCREASED TO 10UNITS/HR.
[2018-11-17 13:31] LABS: BUN 12 mg/dl (7-24); CHLORIDE 98 mmol/L (98-107); CREATININE 0.57 mg/dL (0.55-1.02); POTASSIUM 5.1 mmol/L (3.5-5.1); SODIUM 128 mmol/L (136-145)
--- NOTE | 2018-11-17 13:53 | NUR ---
ABG'S ATTEMPTED X2 WITHOUT SUCCESS. PT STATED SHE DID NOT WANT ANOTHER STICK AT THIS TIME. WILL REEVALUTE AT A LATER TIME.
--- NOTE | 2018-11-17 14:45 | NUR ---
GLUCOSE REFLEX 612. DR VELÁSQUEZ AWARE AND INSULIN GTT INCREASED TO 11UINTS/HR PER PROTOCOL.
--- NOTE | 2018-11-17 15:25 | NUR ---
BEDSIDE GLUCOSE READING CRITICALLY HIGH STILL. ANOTHER RELEX ORDERED AND DR VELÁSQUEZ AWARE. INSULIN GTT INCREASED.
--- NOTE | 2018-11-17 15:51 | NUR ---
PT'S MOTHER AT BEDSIDE AND PT IS STATING IF SHE DOES NOT GET SOLID FOOD TODAY THAT SHE IS LEAVING. I TRIED TO EDUCATED PT ON THE IMPORTANCE OF STAYING AND THAT SHE IS IN DKA AND THIS CAN BE LIFE THREATENING TO HER. SHE STATES THAT SHE WILL JUST SEE DR GHOSH TOMORROW. I EXPLAINED TO HER THAT THIS IS NOT SOMETHING THAT CAN BE TREATED OUTPT. SHE AGREED TO STAY AT THIS TIME WITH MOTHERS INSISTANCE. DR VELÁSQUEZ MADE AWARE.
[2018-11-17 16:00] VITALS: BP 133/96
--- NOTE | 2018-11-17 17:03 | NUR ---
DR GHOSH SPOKE WITH DR ONEILL HIMSELF AND MADE HIM AWARE OF NEW CONSULT ORDER.
[2018-11-17 17:23] LABS: ABG HCO3 3.8 mmol/l (22-26); ABG O2 SATURATION 98.4 % (95-97); ARTERIAL BLOOD GAS PH 7.318 (7.35-7.45)
[2018-11-17 17:25] LABS: BILIRUBIN NEGATIVE (NEGATIVE); BLOOD NEGATIVE (NEGATIVE); CLARITY CLEAR (CLEAR); COLOR YELLOW (YELLOW); GLUCOSE 3+ (NEGATIVE); KETONE 3+ (NEGATIVE); LEUKO ESTERASE NEGATIVE (NEGATIVE); NITRITE NEGATIVE (NEGATIVE); PH 5.5 (5.0-9.0); UROBILINOGEN 0.2 E.U./dl (0.2-1.0)
[2018-11-17 17:30] LABS: ABG BASE EXCESS -21.8 mmol/L (-2.0-2.0)
--- NOTE | 2018-11-17 17:30 | NUR ---
DR VELÁSQUEZ MADE AWARE OF PT'S CRITICAL LABS.
[2018-11-17 17:31] LABS: ARTERIAL BLOOD GAS PCO2 7.7 mmHg (35-45)
--- NOTE | 2018-11-17 17:32 | NUR ---
GLUCOSE REFLEX 580. INSULIN GTT INCREASED TO 13UNITS/HR.
[2018-11-17 17:42] LABS: PHOSPHOROUS 3.9 mg/dL (2.5-4.9)
[2018-11-17 17:44] LABS: BUN 14 mg/dl (7-24); CHLORIDE 96 mmol/L (98-107); CREATININE 0.75 mg/dL (0.55-1.02); POTASSIUM 4.5 mmol/L (3.5-5.1); SODIUM 130 mmol/L (136-145)
[2018-11-17 17:54] LABS: BACTERIA TRACE; WBC 0-2 wbc/hpf (0-5)
--- NOTE | 2018-11-17 18:57 | NUR ---
I CALLED TO GIVE REPORT TO [facility] UNIT E-7 AT [phone] THEY STATED THEY WILL CALL US BACK.
--- NOTE | 2018-11-17 18:58 | NUR ---
GLUCOSE 507. INSULIN GTT INCREASED TO 14UNITS/HR.
--- NOTE | 2018-11-17 19:14 | NUR ---
Report given to Jannet at [facility] unit e-7.
--- NOTE | 2018-11-17 19:23 | NUR ---
[facility] HERE TO TRANSPORT PT TO [facility]. MOTHER AT BEDSIDE AT TIME OF TRANSFER.
== END 2018-11-17 19:23 | disposition short-term general hospital (02) | DRG 637 ==
LOC: ED 15:22 → ICCU 17:30 → EDHOLD 17:30 → 4E 17:30 → ICCU 11-16 13:50
PROVIDERS: Emergency Medicine; Internal Medicine Nephrology; Student in an Organized Health Care Education/Training Program; ADMIT Internal Medicine
DX: E10.10 Type 1 diabetes mellitus with ketoacidosis without coma (principal); E43 Unspecified severe protein-calorie malnutrition; N17.0 Acute kidney failure with tubular necrosis; R65.10 Systemic inflammatory response syndrome (SIRS) of non-infectious origin without acute organ dysfunction; E87.1 Hypo-osmolality and hyponatremia; F11.23 Opioid dependence with withdrawal; E87.4 Mixed disorder of acid-base balance; Z68.1 Body mass index [BMI] 19.9 or less, adult; K02.9 Dental caries, unspecified; F17.210 Nicotine dependence, cigarettes, uncomplicated; E87.6 Hypokalemia; E87.5 Hyperkalemia; E87.8 Other disorders of electrolyte and fluid balance, not elsewhere classified; R06.82 Tachypnea, not elsewhere classified; E83.39 Other disorders of phosphorus metabolism; R74.8 Abnormal levels of other serum enzymes; D72.829 Elevated white blood cell count, unspecified; D47.3 Essential (hemorrhagic) thrombocythemia; F14.10 Cocaine abuse, uncomplicated; Z71.6 Tobacco abuse counseling; Z80.3 Family history of malignant neoplasm of breast; Z91.14 Patient's other noncompliance with medication regimen

== ENCOUNTER 2019-06-09 13:50 | Inpatient (IN) | payer OTHER ==
[~2019-06-09] VITALS: Ht 157.4 cm; Wt 42.0 kg
[~2019-06-09 13:50] MED LIST changes: +BASAG SOL SC; +NOVOLOG10 ML SC
--- NOTE | 2019-06-09 14:36 | NUR ---
28 year old FEMALE admitted to room # 425 for stabilization. Reports an addiction to HEROIN last used 18 hours prior to admission. Compliant with admission procedure. Patient denies any anxiety, but is unable to sit still, taps toes to floor continuously, looks about room, unable to focus eyes on nurse during interview. See assessment forms for additional information about patient status.
--- NOTE | 2019-06-09 14:53 | NUR ---
NOTIFIED OF WOUND/INFECTION TO RT EYE. SAID ORDERS WOULD BE PLACED ONCE SOMEONE ASSESSES THE PT.
[2019-06-09 14:56] VITALS: BP 128/91
--- NOTE | 2019-06-09 15:09 | NUR ---
MED REC COMPLETED WITH PT AT BEDSIDE. JORGEYL REPORTS NOVOLOG 10U ACHS AT THIS TIME.
[2019-06-09 15:27] LABS: BILIRUBIN NEGATIVE (NEGATIVE); BLOOD NEGATIVE (NEGATIVE); CLARITY CLEAR (CLEAR); COLOR YELLOW (YELLOW); GLUCOSE 3+ (NEGATIVE); KETONE 1+ (NEGATIVE); LEUKO ESTERASE NEGATIVE (NEGATIVE); NITRITE NEGATIVE (NEGATIVE); PH 6.5 (5.0-9.0); SPECIFIC GRAVITY <= 1.005 (1.005-1.030); UROBILINOGEN 0.2 E.U./dl (0.2-1.0)
[2019-06-09 15:37] LABS: BASO # 0.1 10*3/uL (0.0-0.1); BASO % 0.4 % (0.0-1.0); EOS % 0.1 % (1.0-4.0); HEMATOCRIT 38.9 % (37.0-47.0); HEMOGLOBIN 12.6 g/dl (12.0-16.0); LYMPH # 1.3 10*3/uL (1.3-4.4); LYMPH % 6.9 % (27.0-41.0); MEAN CELL VOLUME 85.9 fl (81.0-99.0); MEAN CORPUSCULAR HGB 27.8 pg (27.0-31.0); MEAN CORPUSCULAR HGB CONC 32.4 g/dl (33.0-37.0); MEAN PLATELET VOLUME 9.4 fl (9.6-12.3); MONO # 0.6 10*3/uL (0.1-1.0); NEUT # 16.9 10*3/uL (2.3-7.9); NEUT % 89.1 % (47.0-73.0); PLATELET COUNT AUTOMATED 463 10*3/uL (130-400); RED BLOOD COUNT 4.53 10*6/uL (4.10-5.10); RED CELL DISTRI WIDTH 12.6 % (0-14.5); WHITE BLOOD COUNT 18.9 10*3/uL (4.8-10.8)
[2019-06-09 15:46] LABS: URINE AMPHETAMINES < 1000 (1000ng/ml); URINE BARBITURATES < 200 (200ng/ml); URINE BENZODIAZEPINES > 200 (200ng/ml); URINE CANNABINOIDS (THC) < 50 (50ng/ml); URINE COCAINE > 300 (300ng/ml); URINE METHADONE < 300 (300ng/ml); URINE OPIATES < 300 (300ng/ml)
[2019-06-09 15:47] LABS: URINE PHENCYCLIDINE < 25 (25ng/ml)
[2019-06-09 15:51] LABS: YEAST 1+
[2019-06-09 15:52] LABS: ALBUMIN 2.9 gm/dl (3.1-4.5); ALKALINE PHOSPHATASE 218 U/L (45-117); BUN 11 mg/dl (7-24); CHLORIDE 89 mmol/L (98-107); CREATININE 0.79 mg/dL (0.55-1.02); POTASSIUM 3.6 mmol/L (3.5-5.1); SGPT/ALT 10 U/L (12-78); SODIUM 129 mmol/L (136-145); TOTAL PROTEIN 7.7 gm/dL (6.4-8.2)
[2019-06-09 15:55] LABS: BETA-HCG, QUANT < 1.0 mIU/mL (1-3); SGOT/AST < 3 IU/L (3-35)
[2019-06-09 16:00] VITALS: BP 124/82
--- NOTE | 2019-06-09 16:12 | NUR ---
PATIENT MEETS [facility]. CINA=17. PATIENT WANTS TO FOLLOW UP WITH [facility] [place] FOR HER AFTERCARE PLAN. MOON DARBY B.A. WATCH ADJUSTER
[2019-06-09 20:00] VITALS: BP 134/95
--- NOTE | 2019-06-09 21:18 | NUR ---
BSG >600 PER GLUCOMETER. STAT REFLUX ORDERED. NOTIFIED. SAID TO CALL WITH RESULTS.
--- NOTE | 2019-06-09 21:50 | NUR ---
NOTIFIED OF BSG 864. SAID HE WOULD PUT ORDERS IN.
[2019-06-09 22:32] LABS: BUN 19 mg/dl (7-24); CHLORIDE 86 mmol/L (98-107); CREATININE 0.85 mg/dL (0.55-1.02); SODIUM 124 mmol/L (136-145)
[2019-06-09 22:54] LABS: POTASSIUM 4.6 mmol/L (3.5-5.1)
[2019-06-10] VITALS: BP 137/98
--- NOTE | 2019-06-10 00:41 | NUR ---
10U INSLUIN GIVEN PER ORDERS FROM . WILL MONITOR AND RECHECK BSG IN 1 HR.
--- NOTE | 2019-06-10 00:52 | NUR ---
BSG 474 VIA GLUCOSE REFLEX. NOTIFIED . SAID HE WOULD PUT MORE ORDERS IN.
[2019-06-10 01:25] LABS: BUN 17 mg/dl (7-24); CHLORIDE 93 mmol/L (98-107); CREATININE 0.76 mg/dL (0.55-1.02); SODIUM 131 mmol/L (136-145)
[2019-06-10 01:26] LABS: POTASSIUM 3.5 mmol/L (3.5-5.1)
--- NOTE | 2019-06-10 02:05 | NUR ---
VOMITING. CALLED . SAID HE IS GOIGN TO TRANSFER HER TO ICCU AND ORDER IV JASONFRAN.
--- NOTE | 2019-06-10 02:11 | NUR ---
BSG 246
--- NOTE | 2019-06-10 02:28 | NUR ---
TRANSFERRED TO ICU PER ORDERS WITHOUT INCIDENT. NURSE TO NURSE REPORT GIVEN TO DAILY JAMES.
[2019-06-10 02:30] VITALS: BP 142/96
--- NOTE | 2019-06-10 02:30 | NUR ---
PT TRANSFERRED FROM 4E TO ICU #4. PT A&OX3. RESP NONLABORED. NO ACUTE DISTRESS NOTED. IVF'S INFUSING ORDERED.
--- NOTE | 2019-06-10 02:31 | NUR ---
NOTIFED OF BSG 274. NO NEW ORDERS RED'D.
--- NOTE | 2019-06-10 04:20 | NUR ---
PT HAD A SMALL EMESIS X2. DR MCKEE NOTIFIED AND NEW ORDER FOR PHENERGAN 12.5MG IV X1 NOW.
--- NOTE | 2019-06-10 04:40 | NUR ---
PT TAKEN FOR CT ORDERED.
--- NOTE | 2019-06-10 05:00 | NUR ---
PT BS 229. DR MCKEE NOTIFIED AND ORDER FOR ANOTHER BS AT 0530 AND TO COVER WITH SLIDING SCALE.
--- NOTE | 2019-06-10 05:25 | NUR ---
ELICEOWALKER Caitlin [id number] Please refer to the physician's history and physical for past medical history, comorbid conditions, and allergies. Diagnosis: OPIATE WITHDRAWAL Brijesh Score: 21,LOW OR NO RISK WOUND DESCRIPTIONS: Wound Number: 1 Location of the wound: right lower eyelid Type of wound: traumatic Thickness: Full Size: 0.6cm x 4.0cm x 0.1cm Tunneling: none Undermining: none Sinus Tract: none Presence of Exudate: Purulent Amount: Light Color: Yellow, brown, red Odor: None Periwound Skin Appearance: Edema, erythema Wound edges: approximate Pain (associated with wound): tender to touch How does patient state this happened? pt stated she was stung by a bee 4 days ago Surface the patient is resting on: Isoflex SKIN PREVENTION RECOMMENDATION: 1. Pressure redistribution support surface as appropriate 2. Elevate heels 3. Remove boots/TEDS every shift and reapply 4. Head of bed 30 degrees as tolerated 5. Assess nutrition and hydration 6. Manage moisture 7. Avoid the use of containment devices while in bed 8. Use absorptive products on surfaces limit layers of linens on bed 9. Turn and reposition every 1-2 hours in bed and every 1 hour in chair as tolerated 10. Weight shifts every 15 minutes while up in chair 11. Offloading with pillows or device to keep heels elevated off bed 12. Monitor skin at least every shift 13. Inspect under medical devices twice a day WOUND TREATMENT RECOMMENDATIONS: Consult surgery due to CT scan results. apply warm compresses QID to right lower eyelid Continue tobramycin drops every 4 hours.
--- NOTE | 2019-06-10 05:30 | NUR ---
DR MCKEE NOTIFIED OF CT RESULTS. NEW ORDER FOR WARM COMPRESSES TO RIGHT EYE QID.
--- NOTE | 2019-06-10 05:47 | NUR ---
PT BS 223, 5 UNITS REGULAR INSULIN DESK TOP PUBLISHER PER SLIDING SCALE ORDERED. DR MCKEE NOTIFIED AND NEW ORDER TO CHECK BS Q2H X3 STARTING AT 0800 THEN CONSULT DAY TEAM FOR NEW ORDERS REGARDING BS CHECKS.
[2019-06-10 06:01] LABS: BUN 12 mg/dl (7-24); CHLORIDE 98 mmol/L (98-107); CREATININE 0.52 mg/dL (0.55-1.02); SODIUM 134 mmol/L (136-145)
[2019-06-10 06:17] LABS: BASO # 0.1 10*3/uL (0.0-0.1); BASO % 0.4 % (0.0-1.0); EOS % 0.2 % (1.0-4.0); HEMATOCRIT 33.4 % (37.0-47.0); HEMOGLOBIN 11.1 g/dl (12.0-16.0); LYMPH # 2.7 10*3/uL (1.3-4.4); LYMPH % 13.7 % (27.0-41.0); MEAN CELL VOLUME 83.3 fl (81.0-99.0); MEAN CORPUSCULAR HGB 27.7 pg (27.0-31.0); MEAN CORPUSCULAR HGB CONC 33.2 g/dl (33.0-37.0); MEAN PLATELET VOLUME 9.7 fl (9.6-12.3); MONO # 0.8 10*3/uL (0.1-1.0); NEUT # 15.9 10*3/uL (2.3-7.9); NEUT % 80.9 % (47.0-73.0); PLATELET COUNT AUTOMATED 464 10*3/uL (130-400); RED BLOOD COUNT 4.01 10*6/uL (4.10-5.10); RED CELL DISTRI WIDTH 12.4 % (0-14.5); WHITE BLOOD COUNT 19.7 10*3/uL (4.8-10.8)
[2019-06-10 08:00] VITALS: BP 134/91
--- NOTE | 2019-06-10 08:47 | NUR ---
Dr. Barahona notified of wound care recommendations.
[2019-06-10] MEDS ORDERED: ZOSYN 3.373.375 GM/5 IV (10:10)
[2019-06-10] MEDS ORDERED: VANCO 500500 MG/100 IV (10:10)
[2019-06-10 10:58] LABS: BUN 9 mg/dl (7-24); CHLORIDE 96 mmol/L (98-107); CREATININE 0.46 mg/dL (0.55-1.02); POTASSIUM 3.7 mmol/L (3.5-5.1); SODIUM 130 mmol/L (136-145)
[2019-06-10 16:00] VITALS: BP 136/92
--- NOTE | 2019-06-10 18:53 | NUR ---
ROD, ALCIDES,VISTARIL,ROBAXIN GIVEN FOR MULTIPLE C/O AND HAS BEEN EFFECTIVE PT SLEEPING QUIETLY, STILL AWAITING BED FROM [facility]
[2019-06-10 20:00] VITALS: BP 133/89
--- NOTE | 2019-06-10 20:00 | NUR ---
PT MEDICATED WITH MOTRIN PER PRN ORDER FOR TEMP 101.7.
--- NOTE | 2019-06-10 22:00 | NUR ---
MEDICATED WTIH DESYREL AND REQUIP PER PRN ORDERS FOR S/S OF WITHDRAWL.
[2019-06-11] VITALS: BP 148/98
--- NOTE | 2019-06-11 | NUR ---
PT T 102.0. MEDICATED WITH TYLENOL PER PRN ORDER FOR TEMP. REPORT CALLED TO [facility] AND GIVEN TO ANA AMBROSIO. PT TRANSFERRED TO [facility] VIA [facility]. ALL BELONGINGS AND PAPERWORK SENT WITH PT.
== END 2019-06-11 | disposition short-term general hospital (02) | DRG 872 ==
LOC: 4E 13:50 → ICCU 13:50
PROVIDERS: Hospitalist; Internal Medicine; ADMIT Internal Medicine
DX: A41.9 Sepsis, unspecified organism (principal); F11.23 Opioid dependence with withdrawal; E44.0 Moderate protein-calorie malnutrition; Z68.1 Body mass index [BMI] 19.9 or less, adult; E10.65 Type 1 diabetes mellitus with hyperglycemia; F14.10 Cocaine abuse, uncomplicated; D47.3 Essential (hemorrhagic) thrombocythemia; F17.210 Nicotine dependence, cigarettes, uncomplicated; H00.033 Abscess of eyelid right eye, unspecified eyelid; Z80.3 Family history of malignant neoplasm of breast; Z71.6 Tobacco abuse counseling; Z79.4 Long term (current) use of insulin

== ENCOUNTER 2019-07-14 11:20 | Emergency (ER) | payer OTHER ==
[~2019-07-14] VITALS: Ht 157.4 cm; Wt 47.6 kg
[~2019-07-14 11:20] MED LIST changes: +VANCO 500500 MG/100 IV; +ZOSYN 3.373.375 GM/5 IV
[2019-07-14 11:22] VITALS: BP 153/111
[2019-07-14] MEDS ORDERED: NEURONTIN300 MG PO (12:00)
== END 2019-07-14 12:02 | disposition home or self-care (01) ==
LOC: ED 11:20
DX: E11.40 Type 2 diabetes mellitus with diabetic neuropathy, unspecified (principal); F17.210 Nicotine dependence, cigarettes, uncomplicated; Z98.890 Other specified postprocedural states; Z79.4 Long term (current) use of insulin

== ENCOUNTER 2019-07-17 09:12 | Emergency (ER) | payer OTHER ==
[~2019-07-17] VITALS: Ht 157.4 cm; Wt 49.9 kg
[~2019-07-17 09:12] MED LIST changes: +NEURONTIN300 MG PO
[2019-07-17 09:14] VITALS: BP 145/102
[2019-07-17] MEDS ORDERED: TYLENOL325 M1 PO (09:31)
[2019-07-17] MEDS ORDERED: NAPROSYN500 MG PO (09:31)
== END 2019-07-17 09:41 | disposition home or self-care (01) ==
LOC: ED 09:12
DX: E10.40 Type 1 diabetes mellitus with diabetic neuropathy, unspecified (principal); Z76.0 Encounter for issue of repeat prescription; F17.210 Nicotine dependence, cigarettes, uncomplicated; F14.10 Cocaine abuse, uncomplicated; Z79.4 Long term (current) use of insulin; Z79.899 Other long term (current) drug therapy

== ENCOUNTER 2019-07-26 12:43 | Emergency (ER) | payer OTHER ==
[~2019-07-26] VITALS: Ht 157.4 cm; Wt 51.7 kg
[~2019-07-26 12:43] MED LIST changes: +NAPROSYN500 MG PO; +TYLENOL325 M1 PO
[2019-07-26 13:33] VITALS: BP 130/96
[2019-07-26] MEDS ORDERED: NAPROSYN500 MG PO (13:43)
[2019-07-26] MEDS ORDERED: CEPHALEXIN500 M1 PO (13:43)
== END 2019-07-26 14:09 | disposition home or self-care (01) ==
LOC: ED 12:43
DX: L02.416 Cutaneous abscess of left lower limb (principal); E10.40 Type 1 diabetes mellitus with diabetic neuropathy, unspecified; F17.210 Nicotine dependence, cigarettes, uncomplicated; Z79.4 Long term (current) use of insulin; Z79.899 Other long term (current) drug therapy

== ENCOUNTER 2019-12-12 22:15 | Emergency (ER) | payer OTHER ==
[~2019-12-12] VITALS: Ht 157.4 cm; Wt 54.4 kg
[~2019-12-12 22:15] MED LIST changes: +CEPHALEXIN500 M1 PO
[2019-12-12 22:20] VITALS: BP 124/90
[2019-12-12] MEDS ORDERED: CEFADROXIL500 M1 PO (22:30)
[2019-12-13] MEDS ORDERED: CEPHALEXIN500 M1 PO (17:40)
== END 2019-12-12 22:48 | disposition home or self-care (01) ==
LOC: ED 22:15
DX: L08.9 Local infection of the skin and subcutaneous tissue, unspecified (principal); M79.671 Pain in right foot; E11.9 Type 2 diabetes mellitus without complications; F17.210 Nicotine dependence, cigarettes, uncomplicated; Z79.4 Long term (current) use of insulin

== ENCOUNTER 2020-02-01 09:33 | Emergency (ER) | payer OTHER ==
[~2020-02-01] VITALS: Wt 57.2 kg
[~2020-02-01 09:33] MED LIST changes: +CEFADROXIL500 M1 PO
[2020-02-01 10:14] LABS: BASO # 0.1 10*3/uL (0.0-0.1); BASO % 0.5 % (0.0-1.0); EOS % 0.2 % (1.0-4.0); HEMATOCRIT 41.8 % (37.0-47.0); LYMPH # 1.4 10*3/uL (1.3-4.4); LYMPH % 11.2 % (27.0-41.0); MEAN CELL VOLUME 88.9 fl (81.0-99.0); MEAN CORPUSCULAR HGB 28.1 pg (27.0-31.0); MEAN CORPUSCULAR HGB CONC 31.6 g/dl (33.0-37.0); MEAN PLATELET VOLUME 9.4 fl (9.6-12.3); MONO # 0.3 10*3/uL (0.1-1.0); MONO % 1.9 % (3.0-9.0); NEUT % 85.7 % (47.0-73.0); PLATELET COUNT AUTOMATED 393 10*3/uL (130-400); RED CELL DISTRI WIDTH 13.7 % (0-14.5); WHITE BLOOD COUNT 12.8 10*3/uL (4.8-10.8)
[2020-02-01 10:29] LABS: ACT PARTIAL THROMBO TIME 24.7 SECONDS (20.0-32.1); INTERNATIONAL NORM RATIO 0.9 (2.0-3.5)
[2020-02-01 10:31] LABS: ALBUMIN 2.9 gm/dl (3.1-4.5); ALKALINE PHOSPHATASE 133 U/L (45-117); BUN 8 mg/dl (7-24); CHLORIDE 104 mmol/L (98-107); CREATININE 0.58 mg/dL (0.55-1.02); LIPASE 25 U/L (73-393); POTASSIUM 3.8 mmol/L (3.5-5.1); SGOT/AST 18 IU/L (3-35); SGPT/ALT 22 U/L (12-78); SODIUM 138 mmol/L (136-145)
[2020-02-01 10:33] LABS: BETA-HCG, QUANT < 1.0 mIU/mL (1-3); TROPONIN I < 0.015 ng/ml (<0.045)
[2020-02-01 12:29] LABS: BILIRUBIN NEGATIVE (NEGATIVE); CLARITY SL CLOUDY (CLEAR); COLOR YELLOW (YELLOW); GLUCOSE 1+ (NEGATIVE)
[2020-02-01 12:30] LABS: BLOOD TRACE-INTACT (NEGATIVE); EPITHELIAL CELLS 21-30; KETONE 1+ (NEGATIVE); LEUKO ESTERASE NEGATIVE (NEGATIVE); NITRITE NEGATIVE (NEGATIVE); RBC 0-2 rbc/hpf (0-2); UROBILINOGEN 0.2 E.U./dl (0.2-1.0)
[2020-02-01 12:47] VITALS: BP 154/90
[2020-02-01] MEDS ORDERED: PHENERGAN25 M3 PO (13:14)
[2020-02-02] MEDS ORDERED: TRI-SPRINTEC T1 EACH PO (06:11)
[2020-02-02] MEDS ORDERED: OMEPRAZOLE MAGN20 MG PO (06:11)
[2020-02-02] MEDS ORDERED: Lopressor25 MG PO (06:11)
[2020-02-02] MEDS ORDERED: LANTUS SOL100 UNIT/1 SC (09:55)
[2020-02-02] MEDS ORDERED: NEURONTIN300 MG PO (09:55)
== END 2020-02-01 13:28 | disposition home or self-care (01) ==
LOC: ED 09:33
PROVIDERS: Nurse Practitioner Family
DX: K29.70 Gastritis, unspecified, without bleeding (principal); E11.9 Type 2 diabetes mellitus without complications; F17.200 Nicotine dependence, unspecified, uncomplicated; Z79.899 Other long term (current) drug therapy; Z79.4 Long term (current) use of insulin; Z79.2 Long term (current) use of antibiotics

== ENCOUNTER 2020-02-02 04:14 | Inpatient (IN) | payer OTHER ==
[~2020-02-02] VITALS: Ht 157.5 cm; Wt 55.4 kg
[2020-02-02] VITALS (9 sets, daily range): BP systolic 110–144; BP diastolic 56–95
[~2020-02-02 04:14] MED LIST changes: +PHENERGAN25 M3 PO
[2020-02-02 04:49] LABS: BASO # 0.1 10*3/uL (0.0-0.1); BASO % 0.4 % (0.0-1.0); EOS % 0.2 % (1.0-4.0); HEMATOCRIT 41.1 % (37.0-47.0); LYMPH # 1.9 10*3/uL (1.3-4.4); LYMPH % 10.3 % (27.0-41.0); MEAN CELL VOLUME 87.8 fl (81.0-99.0); MEAN CORPUSCULAR HGB 28.6 pg (27.0-31.0); MEAN CORPUSCULAR HGB CONC 32.6 g/dl (33.0-37.0); MEAN PLATELET VOLUME 9.4 fl (9.6-12.3); MONO # 1.1 10*3/uL (0.1-1.0); MONO % 5.8 % (3.0-9.0); NEUT # 15.5 10*3/uL (2.3-7.9); NEUT % 82.6 % (47.0-73.0); PLATELET COUNT AUTOMATED 391 10*3/uL (130-400); RED BLOOD COUNT 4.68 10*6/uL (4.10-5.10); RED CELL DISTRI WIDTH 14.1 % (0-14.5); WHITE BLOOD COUNT 18.7 10*3/uL (4.8-10.8)
[2020-02-02 05:04] LABS: ALKALINE PHOSPHATASE 142 U/L (45-117); BUN 13 mg/dl (7-24); CHLORIDE 95 mmol/L (98-107); CREATININE 0.81 mg/dL (0.55-1.02); LIPASE 21 U/L (73-393); POTASSIUM 4.1 mmol/L (3.5-5.1); SGOT/AST 8 IU/L (3-35); SGPT/ALT 18 U/L (12-78); SODIUM 134 mmol/L (136-145); TOTAL PROTEIN 7.1 gm/dL (6.4-8.2)
[2020-02-02] MEDS ORDERED: Lopressor25 MG PO (06:11)
[2020-02-02] MEDS ORDERED: TRI-SPRINTEC T1 EACH PO (06:11)
[2020-02-02] MEDS ORDERED: OMEPRAZOLE MAGN20 MG PO (06:11)
[2020-02-02 06:58] LABS: BUN 14 mg/dl (7-24); CHLORIDE 102 mmol/L (98-107); CREATININE 0.89 mg/dL (0.55-1.02); POTASSIUM 4.2 mmol/L (3.5-5.1); SODIUM 134 mmol/L (136-145)
--- NOTE | 2020-02-02 07:00 | NUR ---
A 29, admitted to ICCU, under the services of REY Stephenson MD with a diagnosis of DKA. Chief complaint is ELEVATED BLOOD SUGARS, N/V. Patient arrived via stretcher from ER. Monitor applied. Initial assessment completed. Vital signs taken and recorded. REY STEPHENSON MD notified of admission to the unit. Orders received. See assessment for past medical history, medications and allergies. Patient and/or family oriented to unit. [facility] visitation policy reviewed. Clothing/patient valuable form completed. CASTILLO
[2020-02-02 08:07] LABS: BILIRUBIN NEGATIVE (NEGATIVE); BLOOD NEGATIVE (NEGATIVE); CLARITY SL CLOUDY (CLEAR); COLOR YELLOW (YELLOW); GLUCOSE 3+ (NEGATIVE); KETONE 3+ (NEGATIVE); LEUKO ESTERASE NEGATIVE (NEGATIVE); NITRITE NEGATIVE (NEGATIVE); UROBILINOGEN 0.2 E.U./dl (0.2-1.0)
[2020-02-02 08:16] LABS: BACTERIA 3+; EPITHELIAL CELLS 21-30; MUCOUS 1+
--- NOTE | 2020-02-02 08:52 | NUR ---
MEDICATED PT PER PER PPRN ORDER WITH MORPHINE FOR C/O ABD. PAIN THAT RATES 7/10 ON PAIN SCALE. ALSO MEDICATED PT PER PRN ORDER WITH ZOFRAN FOR NAUSEA.
--- NOTE | 2020-02-02 09:26 | NUR ---
PT STATES RELIEF OF ABD. PAIN WITH EARLIER MORPHINE.
--- NOTE | 2020-02-02 09:53 | NUR ---
BMP DRAWN PER ORDER. PT RESTING. PT DENIES COMPLAINTS AT THIS TIME.
[2020-02-02] MEDS ORDERED: NEURONTIN300 MG PO (09:55)
[2020-02-02] MEDS ORDERED: LANTUS SOL100 UNIT/1 SC (09:55)
[2020-02-02 10:09] LABS: BUN 15 mg/dl (7-24); CHLORIDE 109 mmol/L (98-107); CREATININE 0.81 mg/dL (0.55-1.02); POTASSIUM 3.9 mmol/L (3.5-5.1); SODIUM 143 mmol/L (136-145)
--- NOTE | 2020-02-02 10:21 | NUR ---
INSULIN GTT DECREASED TO 2 UNITS PER ORDER PER DR HERRERA FOR GLUCOSE 170. PT UPDATED ON PLAN OF CARE.
--- NOTE | 2020-02-02 11:14 | NUR ---
DR HERRERA UPDATED ON PT'S BEDSIDE GLUCOSE OF 120. INSULIN GTT TITRATED TO 1 UNIT/HR PER ORDER OF DR HERRERA.
--- NOTE | 2020-02-02 12:10 | NUR ---
PT TO CT SCAN VIA WC.
--- NOTE | 2020-02-02 12:22 | NUR ---
DR GHOSH IN TO SEE PT. NEW ORDERS RECEIVED.
--- NOTE | 2020-02-02 13:21 | NUR ---
INSULIN GTT D/C'D PER DR HERRERA.
--- NOTE | 2020-02-02 14:21 | NUR ---
MEDICATED PT PER PRN ORDER WITH MORHINE FOR C/O ABD. PAIN THAT RATES 7/10 ON PAIN SCALE.
[2020-02-02 15:00] LABS: BUN 12 mg/dl (7-24); CHLORIDE 104 mmol/L (98-107); CREATININE 0.92 mg/dL (0.55-1.02); POTASSIUM 4.2 mmol/L (3.5-5.1); SODIUM 137 mmol/L (136-145)
--- NOTE | 2020-02-02 15:00 | NUR ---
PT STATES RELEIF OF ABD. PAIN WITH EARLIER MORPHINE. PT NOW C/O ABD. "BURNING" AND SLIGHT NAUSEA. MEDICATED PT PER PRN ORDER WITH ZOFRAN.
--- NOTE | 2020-02-02 16:00 | NUR ---
PT RESTING. NO ACUTE DISTRESS NOTED AT THIS TIME.
[2020-02-02 18:56] LABS: BUN 9 mg/dl (7-24); CHLORIDE 108 mmol/L (98-107); CREATININE 0.81 mg/dL (0.55-1.02); POTASSIUM 3.5 mmol/L (3.5-5.1); SODIUM 139 mmol/L (136-145)
--- NOTE | 2020-02-02 20:00 | NUR ---
PT RESTING IN BED AWAKE, A&OX3, PLEASANT AND COOPERATIVE. RESP NONLABORED. NO ACUTE DISTRESS NOTED. MEDICATED WITH MORPHINE PER PRN ORDER FOR C/O ABD PAIN. NO S/S OF HYPO/HYPERGLYCEMIA NOTED.
--- NOTE | 2020-02-02 21:30 | NUR ---
MORPHINE EFFECTIVE FOR PAIN.
[2020-02-02 23:08] LABS: BUN 11 mg/dl (7-24); CHLORIDE 106 mmol/L (98-107); CREATININE 1.01 mg/dL (0.55-1.02); POTASSIUM 3.4 mmol/L (3.5-5.1); SODIUM 138 mmol/L (136-145)
--- NOTE | 2020-02-02 23:45 | NUR ---
MEDICATED WITH MORHPINE PER PRN ORDER FOR C/O ABD PAIN.
[2020-02-03] VITALS: BP 144/99
[2020-02-03 00:36] LABS: BUN 11 mg/dl (7-24); CHLORIDE 106 mmol/L (98-107); CREATININE 0.79 mg/dL (0.55-1.02); POTASSIUM 3.5 mmol/L (3.5-5.1); SODIUM 140 mmol/L (136-145)
[2020-02-03 04:00] VITALS: BP 138/98
[2020-02-03 06:27] LABS: BUN 10 mg/dl (7-24); CHLORIDE 104 mmol/L (98-107); CREATININE 0.73 mg/dL (0.55-1.02); POTASSIUM 4.4 mmol/L (3.5-5.1); SODIUM 136 mmol/L (136-145)
[2020-02-03 06:29] LABS: BASO # 0.1 10*3/uL (0.0-0.1); BASO % 0.6 % (0.0-1.0); EOS # 0.2 10*3/uL (0.0-0.4); HEMATOCRIT 35.3 % (37.0-47.0); LYMPH # 4.2 10*3/uL (1.3-4.4); LYMPH % 29.4 % (27.0-41.0); MEAN CELL VOLUME 87.8 fl (81.0-99.0); MEAN CORPUSCULAR HGB 28.1 pg (27.0-31.0); MEAN PLATELET VOLUME 9.5 fl (9.6-12.3); MONO # 0.8 10*3/uL (0.1-1.0); MONO % 5.6 % (3.0-9.0); NEUT % 62.9 % (47.0-73.0); PLATELET COUNT AUTOMATED 336 10*3/uL (130-400); RED BLOOD COUNT 4.02 10*6/uL (4.10-5.10); WHITE BLOOD COUNT 14.4 10*3/uL (4.8-10.8)
--- NOTE | 2020-02-03 07:45 | NUR ---
RESTING IN BED. COMPLAINS OF ABDOMINAL PAIN. BP 160/100.
[2020-02-03 08:00] VITALS: BP 160/100
--- NOTE | 2020-02-03 09:19 | NUR ---
COMPLAINS OF ABDOMINAL PAIN. MEDICATED WITH MORPHINE 2MG IV ORDERED. RATES PAIN A 7 ON A PAIN SCALE OF 1-10. FEELS LIKE BLOOD SUGAR IS ELEVATED. FIRST READING WAS CRITICALLY HIGH THEN REPEATED AND NOW READS 533. DR. HERRERA HERE AND ORDERS FOR 22 UNITS HUMALOG GIVEN.
[2020-02-03 11:41] VITALS: BP 101/68
--- NOTE | 2020-02-03 12:59 | NUR ---
Application Security Developer in to talk to patient. Patient states lives at HOME with ALONE. There are FEW steps in the home. Physician: DAVINA Pharmacy: [facility] Home health services: NONE Patient's level of ADLs: INDEPENDENT Patient has working utilities: YES DME: GLUCOMETER Follow-up physician's appointment after d/c: PREFERS TO MAKE OWN ON DISCHARGE Does patient want to access PORTAL?: NO Discharge plan PT LIVES AT HOME ALONE AND IS INDEPENDENT IN HER CARE. STATES SHE HAS A GLUCOMETER AT HOME BUT IT DOESN'T WORK RIGHT ALL THEY TIME. CALLED [facility] IN PHARMACY AND THEY WILL SEND HER UP A NEW ONE. NO OTHER NEEDS PER PT. PLAN IS TO RETURN HOME WHEN MEDICALLY STABLE. WILL CONTINUE TO FOLLOW. STATES HER MOTHER WILL TRANSPORT HER HOME.. PAULO LEE
[2020-02-03 16:00] VITALS: BP 131/87
--- NOTE | 2020-02-03 18:28 | NUR ---
MEDICATED WITH [facility] FOR COMPLAINTS OF ABDOMINAL PAIN. RATES PAIN A 7 ON A PAIN SCALE OF 1-10
--- NOTE | 2020-02-03 19:00 | NUR ---
ASSUMED CARE FOR THIS PT AT THIS TIME. PT SITTING IN CHAIR IN ROOM. NO C/O VOICED.
--- NOTE | 2020-02-03 19:00 | NUR ---
TRANSFERRED TO 4009 VIA WHEELCHAIR.
--- NOTE | 2020-02-03 19:42 | NUR ---
REPORT GIVEN TO NATTY CORTÉS RN.
[2020-02-03 20:00] VITALS: BP 121/82
[2020-02-04] VITALS: BP 128/86
--- NOTE | 2020-02-04 00:43 | NUR ---
CHECKED PT'S BS PER PT REQUEST. BGM 159
[2020-02-04 06:51] LABS: BASO # 0.1 10*3/uL (0.0-0.1); BASO % 0.7 % (0.0-1.0); EOS # 0.2 10*3/uL (0.0-0.4); EOS % 1.6 % (1.0-4.0); HEMATOCRIT 36.9 % (37.0-47.0); LYMPH # 3.8 10*3/uL (1.3-4.4); LYMPH % 39.8 % (27.0-41.0); MEAN CELL VOLUME 87.4 fl (81.0-99.0); MEAN PLATELET VOLUME 9.2 fl (9.6-12.3); MONO # 0.7 10*3/uL (0.1-1.0); MONO % 7.2 % (3.0-9.0); NEUT # 4.8 10*3/uL (2.3-7.9); NEUT % 50.4 % (47.0-73.0); PLATELET COUNT AUTOMATED 336 10*3/uL (130-400); RED BLOOD COUNT 4.22 10*6/uL (4.10-5.10); RED CELL DISTRI WIDTH 13.8 % (0-14.5); WHITE BLOOD COUNT 9.5 10*3/uL (4.8-10.8)
[2020-02-04 07:22] LABS: ALBUMIN 2.6 gm/dl (3.1-4.5); BUN 16 mg/dl (7-24); CHLORIDE 101 mmol/L (98-107); POTASSIUM 3.7 mmol/L (3.5-5.1); SGOT/AST 9 IU/L (3-35); SGPT/ALT 16 U/L (12-78); SODIUM 135 mmol/L (136-145); TOTAL PROTEIN 6.2 gm/dL (6.4-8.2)
[2020-02-04 07:24] LABS: ALKALINE PHOSPHATASE 112 U/L (45-117); CREATININE 0.64 mg/dL (0.55-1.02)
[2020-02-04 08:00] VITALS: BP 140/92
--- NOTE | 2020-02-04 09:15 | NUR ---
commercial hvac service technician called and states that pt hr is 130's. Checked on pt who was up packing up belongings and getting things ready for possible DC.
--- NOTE | 2020-02-04 11:30 | NUR ---
DR. Amezquita in and examined pt. States resident Dr. Sahni will be putting in orders for DC later.
--- NOTE | 2020-02-04 11:58 | NUR ---
PT CONTINUES TO DENY NEEDS AT HOME. CAN BE DISCHARGED TO HOME WHEN MEDICALLY STABLE.
[2020-02-04 12:00] VITALS: BP 109/73
--- NOTE | 2020-02-04 12:30 | NUR ---
Pt states she needs to leave soon, States her mom just called and she isn't feeling well and she is watching her children. States her mom has hx of cancer so she needs to leave as soon as possible to not add to her stress. Notified Dr. Sahni who is here rounding.
--- NOTE | 2020-02-04 12:45 | NUR ---
Discharge instructions reviewed with patient. Patient receptive and verbalizes understanding. Follow-up care arranged. Written instructions given to patient. Pt left via ambulatory with belongings. Declined wheelchair.
== END 2020-02-04 12:45 | disposition home or self-care (01) | DRG 720 ==
LOC: ED 04:14 → 4NE 05:59 → ICCU 05:59 → 4NE 02-03 19:35
PROVIDERS: Emergency Medicine; Internal Medicine; ADMIT Internal Medicine
DX: A41.9 Sepsis, unspecified organism (principal); E10.10 Type 1 diabetes mellitus with ketoacidosis without coma; K29.90 Gastroduodenitis, unspecified, without bleeding; E87.8 Other disorders of electrolyte and fluid balance, not elsewhere classified; R74.8 Abnormal levels of other serum enzymes; Z79.4 Long term (current) use of insulin; Z79.899 Other long term (current) drug therapy; F17.210 Nicotine dependence, cigarettes, uncomplicated; Z80.3 Family history of malignant neoplasm of breast; E43 Unspecified severe protein-calorie malnutrition

== ENCOUNTER 2020-03-24 12:13 | Emergency (ER) | payer OTHER ==
[~2020-03-24] VITALS: Ht 157.4 cm; Wt 55.8 kg
[~2020-03-24 12:13] MED LIST changes: +LANTUS SOL100 UNIT/1 SC; +Lopressor25 MG PO; +OMEPRAZOLE MAGN20 MG PO; +TRI-SPRINTEC T1 EACH PO
[2020-03-24 12:28] VITALS: BP 137/100
[2020-03-24] MEDS ORDERED: PENICILLIN VK500 MG PO (12:49)
[2020-03-24] MEDS ORDERED: Motrin,Rufen800 MG PO (12:49)
== END 2020-03-24 12:55 | disposition home or self-care (01) ==
LOC: ED 12:13
DX: K04.7 Periapical abscess without sinus (principal); E11.9 Type 2 diabetes mellitus without complications; Z79.899 Other long term (current) drug therapy; Z79.4 Long term (current) use of insulin

== ENCOUNTER 2020-09-25 01:22 | Emergency (ER) | payer OTHER ==
[~2020-09-25] VITALS: Ht 157.4 cm; Wt 54.4 kg
[~2020-09-25 01:22] MED LIST changes: +Motrin,Rufen800 MG PO; +PENICILLIN VK500 MG PO
[2020-09-25 01:36] VITALS: BP 176/114
[2020-09-25 02:00] LABS: BASO # 0.1 10*3/uL (0.0-0.1); BASO % 0.6 % (0.0-1.0); EOS # 0.3 10*3/uL (0.0-0.4); EOS % 2.6 % (1.0-4.0); HEMATOCRIT 39.2 % (37.0-47.0); LYMPH # 3.4 10*3/uL (1.3-4.4); MEAN CELL VOLUME 82.2 fl (81.0-99.0); MEAN CORPUSCULAR HGB 27.3 pg (27.0-31.0); MEAN CORPUSCULAR HGB CONC 33.2 g/dl (33.0-37.0); MEAN PLATELET VOLUME 9.6 fl (9.6-12.3); MONO # 0.5 10*3/uL (0.1-1.0); MONO % 4.6 % (3.0-9.0); NEUT # 5.8 10*3/uL (2.3-7.9); NEUT % 57.9 % (47.0-73.0); PLATELET COUNT AUTOMATED 303 10*3/uL (130-400); RED BLOOD COUNT 4.77 10*6/uL (4.10-5.10); RED CELL DISTRI WIDTH 13.3 % (0-14.5)
[2020-09-25 02:17] LABS: ALBUMIN 3.8 gm/dl (3.1-4.5); ALKALINE PHOSPHATASE 134 U/L (45-117); BUN 10 mg/dl (7-24); CHLORIDE 106 mmol/L (98-107); CREATININE 0.63 mg/dL (0.55-1.02); LIPASE 13 U/L (73-393); POTASSIUM 3.7 mmol/L (3.5-5.1); SGOT/AST 12 IU/L (3-35); SGPT/ALT 22 U/L (12-78); SODIUM 141 mmol/L (136-145); TOTAL PROTEIN 7.2 gm/dL (6.4-8.2)
[2020-09-25 03:08] LABS: BILIRUBIN Negative (Negative); BLOOD Trace-Intact (Negative); CLARITY Turbid (Clear); COLOR Yellow (Yellow); GLUCOSE 1+ (Negative); KETONE 2+ (Negative); LEUKO ESTERASE 1+ (Negative); NITRITE Negative (Negative); UROBILINOGEN 0.2 E.U./dl (0.0-1.0)
[2020-09-25 03:24] LABS: URINE AMPHETAMINES < 1000 (1000ng/ml); URINE BARBITURATES < 200 (200ng/ml); URINE BENZODIAZEPINES < 200 (200ng/ml); URINE CANNABINOIDS (THC) > 50 (50ng/ml); URINE COCAINE > 300 (300ng/ml); URINE METHADONE < 300 (300ng/ml); URINE OPIATES < 300 (300ng/ml)
[2020-09-25 03:28] LABS: BACTERIA 2+; EPITHELIAL CELLS TNTC; RBC 21-30 rbc/hpf (0-2)
[2020-09-25 03:30] LABS: URINE PHENCYCLIDINE < 25 (25ng/ml)
[2020-09-25] MEDS ORDERED: CIPRO500 MG PO (03:40)
[2020-09-25] MEDS ORDERED: ZOFRAN4 MG PO (19:54)
== END 2020-09-25 04:40 | disposition home or self-care (01) ==
LOC: ED 01:22
PROVIDERS: Internal Medicine
DX: F12.188 Cannabis abuse with other cannabis-induced disorder (principal); F14.10 Cocaine abuse, uncomplicated; R11.10 Vomiting, unspecified; E10.65 Type 1 diabetes mellitus with hyperglycemia; R10.13 Epigastric pain; F17.210 Nicotine dependence, cigarettes, uncomplicated; Z79.2 Long term (current) use of antibiotics; Z79.899 Other long term (current) drug therapy; Z98.890 Other specified postprocedural states

== ENCOUNTER 2020-09-25 16:37 | Emergency (ER) | payer OTHER ==
[~2020-09-25] VITALS: Ht 157.4 cm; Wt 54.4 kg
[~2020-09-25 16:37] MED LIST changes: +CIPRO500 MG PO
[2020-09-25 18:17] VITALS: BP 150/97
[2020-09-25] MEDS ORDERED: ZOFRAN4 MG PO (19:54)
== END 2020-09-25 20:34 | disposition home or self-care (01) ==
LOC: ED 16:37
DX: R11.15 Cyclical vomiting syndrome unrelated to migraine (principal); E11.40 Type 2 diabetes mellitus with diabetic neuropathy, unspecified; F17.210 Nicotine dependence, cigarettes, uncomplicated; Z86.14 Personal history of Methicillin resistant Staphylococcus aureus infection; Z88.0 Allergy status to penicillin; Z79.899 Other long term (current) drug therapy; Z79.2 Long term (current) use of antibiotics; Z79.4 Long term (current) use of insulin; Z98.890 Other specified postprocedural states

== ENCOUNTER 2020-09-25 22:55 | Emergency (ER) | payer OTHER ==
[~2020-09-25 22:55] MED LIST changes: +ZOFRAN4 MG PO
== END 2020-09-25 23:27 | disposition left against medical advice (07) ==
LOC: ED 22:55
DX: R11.10 Vomiting, unspecified (principal); Z53.21 Procedure and treatment not carried out due to patient leaving prior to being seen by health care provider

== ENCOUNTER 2020-09-26 02:25 | Inpatient (IN) | payer OTHER ==
[~2020-09-26] VITALS: Ht 152.4 cm; Wt 45.8 kg
[2020-09-26 02:38] VITALS: BP 118/76
[2020-09-26 02:49] LABS: BASO # 0.1 10*3/uL (0.0-0.1); BASO % 0.3 % (0.0-1.0); EOS % 0.1 % (1.0-4.0); HEMATOCRIT 37.1 % (37.0-47.0); LYMPH # 1.4 10*3/uL (1.3-4.4); LYMPH % 7.5 % (27.0-41.0); MEAN CELL VOLUME 82.4 fl (81.0-99.0); MEAN CORPUSCULAR HGB 27.1 pg (27.0-31.0); MEAN CORPUSCULAR HGB CONC 32.9 g/dl (33.0-37.0); MEAN PLATELET VOLUME 9.8 fl (9.6-12.3); MONO # 0.4 10*3/uL (0.1-1.0); MONO % 2.2 % (3.0-9.0); NEUT # 17.2 10*3/uL (2.3-7.9); NEUT % 89.3 % (47.0-73.0); PLATELET COUNT AUTOMATED 328 10*3/uL (130-400); RED CELL DISTRI WIDTH 13.4 % (0-14.5); WHITE BLOOD COUNT 19.2 10*3/uL (4.8-10.8)
[2020-09-26 03:07] LABS: URINE AMPHETAMINES < 1000 (1000ng/ml); URINE BARBITURATES < 200 (200ng/ml); URINE BENZODIAZEPINES < 200 (200ng/ml); URINE CANNABINOIDS (THC) > 50 (50ng/ml); URINE COCAINE < 300 (300ng/ml); URINE METHADONE < 300 (300ng/ml); URINE OPIATES < 300 (300ng/ml); URINE PHENCYCLIDINE < 25 (25ng/ml)
[2020-09-26 03:08] LABS: ALBUMIN 4.1 gm/dl (3.1-4.5); ALKALINE PHOSPHATASE 132 U/L (45-117); BUN 19 mg/dl (7-24); CHLORIDE 104 mmol/L (98-107); CREATININE 0.92 mg/dL (0.55-1.02); POTASSIUM 3.4 mmol/L (3.5-5.1); SGOT/AST 8 IU/L (3-35); SGPT/ALT 16 U/L (12-78); SODIUM 140 mmol/L (136-145); TOTAL PROTEIN 7.6 gm/dL (6.4-8.2)
[2020-09-26 03:30] LABS: BILIRUBIN Negative (Negative); BLOOD Trace-Lysed (Negative); CLARITY Clear (Clear); COLOR Yellow (Yellow); GLUCOSE 3+ (Negative); KETONE 4+ (Negative); LEUKO ESTERASE Negative (Negative); NITRITE Positive (Negative); SPECIFIC GRAVITY 1.015 (1.001-1.030); UROBILINOGEN 0.2 E.U./dl (0.0-1.0)
[2020-09-26 03:58] LABS: BACTERIA 2+; EPITHELIAL CELLS 16-20; WBC 0-2 wbc/hpf (0-5)
[2020-09-26 07:04] LABS: BUN 16 mg/dl (7-24); CHLORIDE 111 mmol/L (98-107); CREATININE 0.72 mg/dL (0.55-1.02); POTASSIUM 3.1 mmol/L (3.5-5.1); SODIUM 143 mmol/L (136-145)
[2020-09-26 13:37] VITALS: BP 120/60
[2020-09-26 14:15] VITALS: BP 138/97
[2020-09-26 14:42] LABS: BUN 16 mg/dl (7-24); CHLORIDE 107 mmol/L (98-107); POTASSIUM 3.1 mmol/L (3.5-5.1); SODIUM 141 mmol/L (136-145)
[2020-09-26 16:00] VITALS: BP 138/97
[2020-09-26 18:39] LABS: BUN 16 mg/dl (7-24); CHLORIDE 111 mmol/L (98-107); CREATININE 0.87 mg/dL (0.55-1.02); POTASSIUM 3.9 mmol/L (3.5-5.1); SODIUM 142 mmol/L (136-145)
[2020-09-26 20:00] VITALS: BP 144/93
[2020-09-27] VITALS: BP 144/102
[2020-09-27 04:00] VITALS: BP 150/104
[2020-09-27 06:03] LABS: BASO % 0.2 % (0.0-1.0); HEMATOCRIT 34.9 % (37.0-47.0); LYMPH # 1.9 10*3/uL (1.3-4.4); LYMPH % 8.4 % (27.0-41.0); MEAN CELL VOLUME 80.8 fl (81.0-99.0); MEAN CORPUSCULAR HGB 27.3 pg (27.0-31.0); MEAN CORPUSCULAR HGB CONC 33.8 g/dl (33.0-37.0); MEAN PLATELET VOLUME 9.6 fl (9.6-12.3); MONO # 1.4 10*3/uL (0.1-1.0); MONO % 6.1 % (3.0-9.0); NEUT % 84.2 % (47.0-73.0); PLATELET COUNT AUTOMATED 297 10*3/uL (130-400); RED BLOOD COUNT 4.32 10*6/uL (4.10-5.10); RED CELL DISTRI WIDTH 13.2 % (0-14.5); WHITE BLOOD COUNT 22.6 10*3/uL (4.8-10.8)
[2020-09-27 06:29] LABS: BUN 7 mg/dl (7-24); CHLORIDE 101 mmol/L (98-107); CREATININE 0.64 mg/dL (0.55-1.02); SODIUM 135 mmol/L (136-145)
[2020-09-27 06:30] LABS: POTASSIUM 2.6 mmol/L (3.5-5.1)
[2020-09-27 08:00] VITALS: BP 159/106
[2020-09-27 12:03] VITALS: BP 160/105
[2020-09-27 15:31] LABS: BUN 3 mg/dl (7-24); CHLORIDE 105 mmol/L (98-107); CREATININE 0.59 mg/dL (0.55-1.02); POTASSIUM 3.1 mmol/L (3.5-5.1); SODIUM 136 mmol/L (136-145)
[2020-09-27 16:00] VITALS: BP 156/110
[2020-09-27 20:00] VITALS: BP 155/110
[2020-09-28] VITALS: BP 147/105
[2020-09-28 04:00] VITALS: BP 145/109
[2020-09-28 06:09] LABS: BASO % 0.2 % (0.0-1.0); EOS % 0.1 % (1.0-4.0); LYMPH # 2.4 10*3/uL (1.3-4.4); LYMPH % 16.7 % (27.0-41.0); MEAN CELL VOLUME 81.1 fl (81.0-99.0); MEAN CORPUSCULAR HGB 27.4 pg (27.0-31.0); MEAN CORPUSCULAR HGB CONC 33.8 g/dl (33.0-37.0); MEAN PLATELET VOLUME 9.5 fl (9.6-12.3); MONO # 1.1 10*3/uL (0.1-1.0); MONO % 7.5 % (3.0-9.0); NEUT # 10.6 10*3/uL (2.3-7.9); NEUT % 75.2 % (47.0-73.0); PLATELET COUNT AUTOMATED 257 10*3/uL (130-400); RED BLOOD COUNT 4.19 10*6/uL (4.10-5.10); RED CELL DISTRI WIDTH 13.3 % (0-14.5); WHITE BLOOD COUNT 14.1 10*3/uL (4.8-10.8)
[2020-09-28 06:16] LABS: ALBUMIN 3.2 gm/dl (3.1-4.5); CHLORIDE 106 mmol/L (98-107); CREATININE 0.46 mg/dL (0.55-1.02); POTASSIUM 3.1 mmol/L (3.5-5.1); SODIUM 140 mmol/L (136-145)
[2020-09-28 06:18] LABS: ALKALINE PHOSPHATASE 112 U/L (45-117); SGOT/AST 9 IU/L (3-35); SGPT/ALT 14 U/L (12-78)
[2020-09-28 06:27] LABS: BUN < 1 mg/dl (7-24)
[2020-09-28 08:00] VITALS: BP 156/103
[2020-09-28 12:00] VITALS: BP 144/101
[2020-09-28] MEDS ORDERED: FLAGYL500 MG PO (14:43)
[2020-09-28 15:17] LABS: CHLORIDE 107 mmol/L (98-107); CREATININE 0.53 mg/dL (0.55-1.02); POTASSIUM 3.5 mmol/L (3.5-5.1); SODIUM 141 mmol/L (136-145)
[2020-09-28 15:24] LABS: BUN < 1 mg/dl (7-24)
== END 2020-09-28 16:14 | disposition home or self-care (01) | DRG 720 ==
LOC: ED 02:25 → EDHOLD 09:59 → ICCU 09:59
PROVIDERS: Internal Medicine; Social Worker Clinical; Student in an Organized Health Care Education/Training Program; ADMIT Internal Medicine; ATTEND Internal Medicine
DX: A41.9 Sepsis, unspecified organism (principal); E10.10 Type 1 diabetes mellitus with ketoacidosis without coma; E83.39 Other disorders of phosphorus metabolism; N39.0 Urinary tract infection, site not specified; E87.6 Hypokalemia; K52.9 Noninfective gastroenteritis and colitis, unspecified; F17.210 Nicotine dependence, cigarettes, uncomplicated; D72.9 Disorder of white blood cells, unspecified; D72.810 Lymphocytopenia; F12.90 Cannabis use, unspecified, uncomplicated; E87.8 Other disorders of electrolyte and fluid balance, not elsewhere classified; F14.10 Cocaine abuse, uncomplicated; B96.20 Unspecified Escherichia coli [E. coli] as the cause of diseases classified elsewhere; E83.42 Hypomagnesemia; Z80.3 Family history of malignant neoplasm of breast; Z79.899 Other long term (current) drug therapy

== ENCOUNTER → 2020-10-18 | Outpatient (CLI) | payer OTHER ==
[~2020-10-18] MED LIST changes: +FLAGYL500 MG PO
== END | disposition home or self-care (01) ==
LOC: COVID19 14:30
PROVIDERS: ATTEND Internal Medicine Nephrology
DX: Z20.822 Contact with and (suspected) exposure to COVID-19 (principal)

== ENCOUNTER → 2020-11-20 | Outpatient (CLI) | payer OTHER | END | disposition home or self-care (01) | LOC: COVID19 08:44 | PROVIDERS: ATTEND Internal Medicine | DX: Z20.822 Contact with and (suspected) exposure to COVID-19 (principal) ==

== ENCOUNTER 2021-02-19 14:33 | Emergency (ER) | payer OTHER ==
[~2021-02-19] VITALS: Ht 157.4 cm; Wt 50.8 kg
[2021-02-19 14:47] VITALS: BP 152/90
[2021-02-19] MEDS ORDERED: Cipro Hc 0.2%-110 ML OT (16:15)
== END 2021-02-19 16:29 | disposition home or self-care (01) ==
LOC: ED 14:33
DX: H60.91 Unspecified otitis externa, right ear (principal); Z79.899 Other long term (current) drug therapy; Z79.4 Long term (current) use of insulin; Z98.890 Other specified postprocedural states

== ENCOUNTER 2021-03-03 14:39 | Emergency (ER) | payer OTHER ==
[~2021-03-03] VITALS: Ht 157.4 cm; Wt 49.9 kg
[~2021-03-03 14:39] MED LIST changes: +Cipro Hc 0.2%-110 ML OT
[2021-03-03 14:48] VITALS: BP 129/90
[2021-03-03 16:38] LABS: BASO # 0.1 10*3/uL (0.0-0.1); BASO % 0.9 % (0.0-1.0); EOS # 0.1 10*3/uL (0.0-0.4); EOS % 0.6 % (1.0-4.0); HEMATOCRIT 46.3 % (37.0-47.0); LYMPH # 2.1 10*3/uL (1.3-4.4); LYMPH % 21.5 % (27.0-41.0); MEAN CELL VOLUME 86.5 fl (81.0-99.0); MEAN CORPUSCULAR HGB 27.5 pg (27.0-31.0); MEAN CORPUSCULAR HGB CONC 31.7 g/dl (33.0-37.0); MONO # 0.6 10*3/uL (0.1-1.0); MONO % 6.4 % (3.0-9.0); NEUT # 6.9 10*3/uL (2.3-7.9); NEUT % 70.4 % (47.0-73.0); PLATELET COUNT AUTOMATED 479 10*3/uL (130-400); RED BLOOD COUNT 5.35 10*6/uL (4.10-5.10); RED CELL DISTRI WIDTH 13.4 % (0-14.5); WHITE BLOOD COUNT 9.8 10*3/uL (4.8-10.8)
[2021-03-03 16:54] LABS: ALBUMIN 3.6 gm/dl (3.1-4.5); ALKALINE PHOSPHATASE 179 U/L (45-117); BUN 12 mg/dl (7-24); CHLORIDE 101 mmol/L (98-107); CREATININE 1.02 mg/dL (0.55-1.02); POTASSIUM 4.3 mmol/L (3.5-5.1); SGOT/AST 9 IU/L (3-35); SGPT/ALT 15 U/L (12-78); SODIUM 135 mmol/L (136-145); TOTAL PROTEIN 8.9 gm/dL (6.4-8.2)
[2021-03-03] MEDS ORDERED: AUGMENTIN 875875 MG PO (17:04)
== END 2021-03-03 18:17 | disposition home or self-care (01) ==
LOC: ED 14:39
PROVIDERS: Student in an Organized Health Care Education/Training Program
DX: H61.21 Impacted cerumen, right ear (principal); H66.92 Otitis media, unspecified, left ear; F17.210 Nicotine dependence, cigarettes, uncomplicated; Z79.4 Long term (current) use of insulin; Z79.899 Other long term (current) drug therapy; Z98.890 Other specified postprocedural states

== ENCOUNTER 2022-02-03 16:40 | Emergency (ER) | payer OTHER ==
[~2022-02-03] VITALS: Wt 49.9 kg
[~2022-02-03 16:40] MED LIST changes: +AUGMENTIN 875875 MG PO; +DALVANCE500 MG IV; +VIBRAMYCIN HYC100 MG PO
[2022-02-03 17:13] LABS: BASO # 0.1 10*3/uL (0.0-0.1); BASO % 0.6 % (0.0-1.0); EOS % 0.1 % (1.0-4.0); HEMATOCRIT 42.4 % (37.0-47.0); LYMPH # 3.5 10*3/uL (1.3-4.4); LYMPH % 18.3 % (27.0-41.0); MEAN CELL VOLUME 81.1 fl (81.0-99.0); MEAN CORPUSCULAR HGB CONC 33.3 g/dl (33.0-37.0); MEAN PLATELET VOLUME 9.7 fl (9.6-12.3); MONO % 5.5 % (3.0-9.0); NEUT # 14.2 10*3/uL (2.3-7.9); PLATELET COUNT AUTOMATED 507 10*3/uL (130-400); RED BLOOD COUNT 5.23 10*6/uL (4.10-5.10); RED CELL DISTRI WIDTH 15.4 % (0-14.5)
[2022-02-03 17:29] LABS: ALKALINE PHOSPHATASE 133 U/L (45-117); BUN 32 mg/dl (7-24); CHLORIDE 100 mmol/L (98-107); CREATININE 1.19 mg/dL (0.55-1.02); POTASSIUM 3.5 mmol/L (3.5-5.1); SGOT/AST 10 IU/L (3-35); SGPT/ALT 17 U/L (12-78); SODIUM 137 mmol/L (136-145); TOTAL PROTEIN 7.7 gm/dL (6.4-8.2)
[2022-02-03 17:33] LABS: BETA-HCG, QUANT < 1.0 mIU/mL (1-3)
[2022-02-03 17:47] LABS: BILIRUBIN Negative (Negative); BLOOD Negative (Negative); CLARITY Cloudy (Clear); COLOR Dark Yellow (Yellow); GLUCOSE 3+ (Negative); KETONE 1+ (Negative); LEUKO ESTERASE Trace (Negative); NITRITE Negative (Negative); PH 5.5 (4.5-8.0); SPECIFIC GRAVITY 1.025 (1.001-1.030)
[2022-02-03 18:05] LABS: URINE AMPHETAMINES < 1000 (1000ng/ml); URINE BARBITURATES < 200 (200ng/ml); URINE BENZODIAZEPINES < 200 (200ng/ml); URINE CANNABINOIDS (THC) > 50 (50ng/ml); URINE COCAINE > 300 (300ng/ml); URINE METHADONE < 300 (300ng/ml); URINE OPIATES < 300 (300ng/ml)
[2022-02-03 18:06] LABS: URINE PHENCYCLIDINE < 25 (25ng/ml)
[2022-02-03 18:27] LABS: BACTERIA 3+; EPITHELIAL CELLS TNTC
[2022-02-04 06:46] VITALS: BP 120/84
[2022-02-04] MEDS ORDERED: SEROQUEL200 MG PO (09:06)
[2022-02-04] MEDS ORDERED: Ondansetron4 MG PO (09:06)
[2022-02-07] MEDS ORDERED: AUGMENTIN 500500 M1 PO (16:05)
== END 2022-02-04 09:09 | disposition home or self-care (01) ==
LOC: ED 16:40
PROVIDERS: Student in an Organized Health Care Education/Training Program
DX: F11.23 Opioid dependence with withdrawal (principal); E11.9 Type 2 diabetes mellitus without complications; F17.210 Nicotine dependence, cigarettes, uncomplicated

== ENCOUNTER → 2022-10-07 | Outpatient (CLI) | payer OTHER ==
[~2022-10-07] MED LIST changes: +AUGMENTIN 500500 M1 PO; +Ondansetron4 MG PO; +PERCOCET 5-3251 EACH PO; +PROTONIX TR40 MG PO; +QUETIAPINE FUMA50 M1 PO; +SEROQUEL200 MG PO; +ZYVOX600 MG PO
== END | disposition home or self-care (01) ==
LOC: WOUNDCARE 12:44
PROVIDERS: ATTEND Podiatrist Foot & Ankle Surgery
DX: T87.89 Other complications of amputation stump (principal); E10.69 Type 1 diabetes mellitus with other specified complication; M86.172 Other acute osteomyelitis, left ankle and foot; F17.210 Nicotine dependence, cigarettes, uncomplicated; Z89.422 Acquired absence of other left toe(s); Y83.5 Amputation of limb(s) as the cause of abnormal reaction of the patient, or of later complication, without mention of misadventure at the time of the procedure

== ENCOUNTER → 2022-11-04 | Outpatient (CLI) | payer OTHER | END | disposition home or self-care (01) | LOC: WOUNDCARE 00:21 | PROVIDERS: ATTEND Podiatrist Foot & Ankle Surgery | DX: T87.89 Other complications of amputation stump (principal); E10.621 Type 1 diabetes mellitus with foot ulcer; L97.512 Non-pressure chronic ulcer of other part of right foot with fat layer exposed; E10.69 Type 1 diabetes mellitus with other specified complication; M86.172 Other acute osteomyelitis, left ankle and foot; F17.210 Nicotine dependence, cigarettes, uncomplicated; Y83.5 Amputation of limb(s) as the cause of abnormal reaction of the patient, or of later complication, without mention of misadventure at the time of the procedure ==

== ENCOUNTER 2024-08-01 16:29 | Inpatient (IN) | payer OTHER ==
[~2024-08-01] VITALS: Ht 157.4 cm; Wt 49.2 kg
[~2024-08-01 16:29] MED LIST changes: +DULOXETINE HCL60 MG PO; +INSULIN AS100 UNIT/3 SQ; +LISINOPRIL2.5 MG PO; +OMEPRAZOLE40 MG PO
[2024-08-01 16:40] VITALS: BP 139/102
[2024-08-01] MEDS ORDERED: SODIUM CHLORIDE 0.9% 1,000 ML IV ONE (16:55)
[2024-08-01 17:11] LABS: BASO # 0.1 10*3/uL (0.0-0.1); BASO % 0.4 % (0.0-1.0); HEMATOCRIT 32.8 % (37.0-47.0); MEAN CELL VOLUME 88.9 fl (81.0-99.0); MEAN CORPUSCULAR HGB 27.4 pg (27.0-31.0); MEAN CORPUSCULAR HGB CONC 30.8 g/dl (33.0-37.0); MEAN PLATELET VOLUME 9.6 fl (9.6-12.3); MONO # 0.5 10*3/uL (0.1-1.0); MONO % 4.2 % (3.0-9.0); NEUT # 9.6 10*3/uL (2.3-7.9); NEUT % 83.3 % (47.0-73.0); PLATELET COUNT AUTOMATED 282 10*3/uL (130-400); RED BLOOD COUNT 3.69 10*6/uL (4.10-5.10); RED CELL DISTRI WIDTH 15.1 % (0-14.5); WHITE BLOOD COUNT 11.5 10*3/uL (4.8-10.8)
[2024-08-01 17:11] LABS: BILIRUBIN Negative (Negative); BLOOD Negative (Negative); CLARITY Clear (Clear); COLOR Yellow (Yellow); GLUCOSE 3+ (Negative); KETONE Trace (Negative); LEUKO ESTERASE Negative (Negative); NITRITE Negative (Negative); SPECIFIC GRAVITY >= 1.030 (1.001-1.030); UROBILINOGEN 0.2 E.U./dl (0.0-1.0)
[2024-08-01 17:16] LABS: VENOUS BLOOD GAS O2 SAT 56.4 % (60.0-85.0)
[2024-08-01 17:18] LABS: URINE AMPHETAMINES Negative (1000ng/ml); URINE BARBITURATES Negative (200ng/ml); URINE BENZODIAZEPINES Negative (200ng/ml); URINE CANNABINOIDS (THC) Negative (50ng/ml); URINE COCAINE Positive (300ng/ml); URINE METHADONE Negative (300ng/ml); URINE OPIATES Negative (300ng/ml); URINE PHENCYCLIDINE Negative (25ng/ml)
[2024-08-01 17:20] LABS: EPITHELIAL CELLS 21-30
[2024-08-01 17:26] LABS: ALKALINE PHOSPHATASE 172 U/L (46-116); BUN 20 mg/dl (9-23); CHLORIDE 110 mmol/L (98-107); POTASSIUM 3.8 mmol/L (3.4-5.1); SGPT/ALT 13 U/L (5-49); TOTAL PROTEIN 5.5 gm/dL (6.0-8.0)
[2024-08-01] MEDS ORDERED: INSULIN REGULAR, HUMAN 1 UNIT/0.01 ML IV ONE (17:35)
[2024-08-01] MEDS ORDERED: MAGNESIUM SULFATE 50 ML IV ONE (17:35)
[2024-08-01] MEDS ORDERED: Enoxaparin Sodium 100 MG/ML SYR SC ONE (17:50)
[2024-08-01] MEDS ORDERED: ASPIRIN, CHEWABLE 81 MG TAB PO ONE (17:50)
[2024-08-01] MEDS ORDERED: LORazepam 1 MG TAB PO ONE (17:55)
[2024-08-01] MEDS ORDERED: FAMOTIDINE 50 ML IV ONE (19:15)
[2024-08-01] MEDS ORDERED: diphenhydrAMINE hydrochloride 50 MG/ML VIAL IV ONE (19:15)
[2024-08-01] MEDS ORDERED: Dexamethasone Sodium Phospha 10 MG/1 ML VIAL IV ONE (19:20)
[2024-08-01] MEDS ORDERED: Technetium Tc 99M Sulfurcoll 1 KIT KIT SCH (19:40)
[2024-08-01] MEDS ORDERED: LORazepam 2 MG/ML VIAL IV ONE ×3 (19:45→20:00)
[2024-08-01 19:53] VITALS: BP 122/69
[2024-08-01] MEDS ORDERED: LORazepam 2 MG/ML VIAL ONE (19:58)
[2024-08-01] MEDS ORDERED: DEXMEDETOMIDINE IN 0.9 % NACL 100 ML IV SCH (20:15)
[2024-08-01] MEDS ORDERED: METHOCARBAMOL 750 MG TAB PO PRN (21:20)
[2024-08-01] MEDS ORDERED: cloNIDine Hydrochloride 0.1 MG TAB PO PRN (21:20)
[2024-08-01] MEDS ORDERED: diphenhydrAMINE hydrochloride 50 MG/ML VIAL IV PRN (21:20)
[2024-08-01] MEDS ORDERED: Dicyclomine Hydrochloride 20 MG TAB PO PRN (21:20)
[2024-08-01] MEDS ORDERED: LORazepam 2 MG/ML VIAL IV PRN (21:25)
[2024-08-01] MEDS ORDERED: Insulin Glargine, Recombinan 1 UNIT/0.01 ML SC SCH (22:00)
[2024-08-01] MEDS ORDERED: GABAPENTIN 300 MG CAP PO SCH (22:00)
[2024-08-01] MEDS ORDERED: QUETIAPINE FUMARATE 50 MG TAB PO SCH (22:00)
[2024-08-01] MEDS ORDERED: BUPRENORPHINE HCL/NALOXONE 2 MG/0.5 MG SL TAB SL SCH (22:00)
[2024-08-02] VITALS (7 sets, daily range): BP systolic 117–149; BP diastolic 80–102
[2024-08-02] MEDS ORDERED: LORazepam 1 MG TAB PO SCH
[2024-08-02] MEDS ORDERED: Pantoprazole Sodium 40 MG TAB PO SCH (06:00)
[2024-08-02] MEDS ORDERED: Enoxaparin Sodium 60 MG/0.6 ML SYR SC SCH ×2 (06:00→18:00)
[2024-08-02 06:49] LABS: BASO % 0.2 % (0.0-1.0); EOS % 0.2 % (1.0-4.0); HEMATOCRIT 29.8 % (37.0-47.0); MEAN CELL VOLUME 86.4 fl (81.0-99.0); MEAN CORPUSCULAR HGB 27.8 pg (27.0-31.0); MEAN CORPUSCULAR HGB CONC 32.2 g/dl (33.0-37.0); MEAN PLATELET VOLUME 10.3 fl (9.6-12.3); MONO # 0.6 10*3/uL (0.1-1.0); MONO % 5.3 % (3.0-9.0); NEUT # 9.6 10*3/uL (2.3-7.9); NEUT % 79.7 % (47.0-73.0); PLATELET COUNT AUTOMATED 288 10*3/uL (130-400); RED BLOOD COUNT 3.45 10*6/uL (4.10-5.10); RED CELL DISTRI WIDTH 15.2 % (0-14.5)
[2024-08-02 07:05] LABS: ALKALINE PHOSPHATASE 167 U/L (46-116); BUN 19 mg/dl (9-23); CHLORIDE 109 mmol/L (98-107); POTASSIUM 4.3 mmol/L (3.4-5.1); SGPT/ALT 11 U/L (5-49); TOTAL PROTEIN 5.5 gm/dL (6.0-8.0)
[2024-08-02] MEDS ORDERED: Duloxetine Hydrochloride 60 MG CAP PO SCH (10:00)
[2024-08-02] MEDS ORDERED: Ondansetron Hydrochloride 4 MG TAB PO PRN (13:25)
[2024-08-02] MEDS ORDERED: Ondansetron Hydrochloride 4 MG TAB PO SCH (14:00)
[2024-08-02] MEDS ORDERED: Ketorolac Tromethamine 30 MG/ML VIAL IV ONE (14:20)
[2024-08-02] MEDS ORDERED: NITROGLYCERIN 1 IN PACKET T SCH (18:00)
[2024-08-02] MEDS ORDERED: Ketorolac Tromethamine 15 MG/ML VIAL IV ONE (20:05)
[2024-08-02] MEDS ORDERED: DEXTROSE 10 % IN WATER 250 ML IV PRN (20:30)
[2024-08-02] MEDS ORDERED: BUPRENORPHINE HCL/NALOXONE 2 MG/0.5 MG SL TAB SL SCH (22:00)
[2024-08-02] MEDS ORDERED: INSULIN LISPRO 1 UNIT/0.01 ML SQ SCH (22:00)
[2024-08-03] VITALS: BP 117/81
[2024-08-03 08:00] VITALS: BP 120/88
[2024-08-03] MEDS ORDERED: Ketorolac Tromethamine 15 MG/ML VIAL IV PRN (10:55)
[2024-08-03 12:00] VITALS: BP 106/87
[2024-08-03 16:00] VITALS: BP 127/93
[2024-08-03] MEDS ORDERED: Technetium Tc 99M Tetrofosmi 0.23 MG KIT IJ SCH (17:10)
[2024-08-03 20:00] VITALS: BP 117/85
[2024-08-03] MEDS ORDERED: BUPRENORPHINE HCL/NALOXONE 2 MG/0.5 MG SL TAB SL SCH (22:00)
[2024-08-03] MEDS ORDERED: Nicotine 21 MG PATCH T SCH (22:00)
[2024-08-03] MEDS ORDERED: SODIUM CHLORIDE 0.9% 1,000 ML IV ONE (23:55)
[2024-08-04] VITALS (9 sets, daily range): BP systolic 88–151; BP diastolic 50–102
[2024-08-04] MEDS ORDERED: Regadenoson 0.4 MG/5 ML SYR IV ONE (06:52)
[2024-08-04] MEDS ORDERED: Insulin Glargine, Recombinan 1 UNIT/0.01 ML SC ONE (18:00)
[2024-08-05] VITALS: BP 112/70
[2024-08-05 05:58] VITALS: BP 141/98
[2024-08-05 08:00] VITALS: BP 125/92
[2024-08-05 12:00] VITALS: BP 128/99
[2024-08-05 16:00] VITALS: BP 147/106
[2024-08-05] MEDS ORDERED: ASPIRIN81 M1 PO (17:42)
[2024-08-05 20:00] VITALS: BP 140/90
[2024-08-06] VITALS: BP 113/70
[2024-08-06 05:12] LABS: ACT PARTIAL THROMBO TIME 21.9 SECONDS (20.0-32.1)
[2024-08-06 05:31] LABS: ALKALINE PHOSPHATASE 149 U/L (46-116); BUN 26 mg/dl (9-23); CHLORIDE 106 mmol/L (98-107); POTASSIUM 4.5 mmol/L (3.4-5.1); SGPT/ALT 52 U/L (5-49); TOTAL PROTEIN 5.3 gm/dL (6.0-8.0)
[2024-08-06 05:32] LABS: B-hCG (QUALITATIVE) NEGATIVE (NEGATIVE)
[2024-08-06 06:12] LABS: BASO % 0.5 % (0.0-1.0); EOS # 0.1 10*3/uL (0.0-0.4); EOS % 1.4 % (1.0-4.0); HEMATOCRIT 27.9 % (37.0-47.0); MEAN CELL VOLUME 90.6 fl (81.0-99.0); MEAN CORPUSCULAR HGB 27.9 pg (27.0-31.0); MEAN CORPUSCULAR HGB CONC 30.8 g/dl (33.0-37.0); MEAN PLATELET VOLUME 10.1 fl (9.6-12.3); MONO # 0.8 10*3/uL (0.1-1.0); MONO % 9.1 % (3.0-9.0); NEUT % 58.8 % (47.0-73.0); PLATELET COUNT AUTOMATED 432 10*3/uL (130-400); RED BLOOD COUNT 3.08 10*6/uL (4.10-5.10); RED CELL DISTRI WIDTH 15.9 % (0-14.5); WHITE BLOOD COUNT 8.5 10*3/uL (4.8-10.8)
[2024-08-06] MEDS ORDERED: MAGNESIUM SULFATE 50 ML IV ONE (07:40)
[2024-08-06 08:00] VITALS: BP 142/100
== END 2024-08-06 11:20 | disposition short-term general hospital (02) | DRG 871 ==
LOC: ED 16:29 → 4E 17:56 → EDHOLD 17:56 → 4E 08-02 09:16
PROVIDERS: Nurse Practitioner Family; ADMIT Internal Medicine; ATTEND Internal Medicine
PROC: 4A02XM4 Measurement of Cardiac Total Activity, External Approach (ICD-10-PCS; principal; 2024-08-04)
PROC: 3E073KZ Introduction of Other Diagnostic Substance into Coronary Artery, Percutaneous Approach (ICD-10-PCS; 2024-08-04)
DX: A41.9 Sepsis, unspecified organism (principal); E11.10 Type 2 diabetes mellitus with ketoacidosis without coma; G93.41 Metabolic encephalopathy; E43 Unspecified severe protein-calorie malnutrition; F11.13 Opioid abuse with withdrawal; N17.9 Acute kidney failure, unspecified; F33.1 Major depressive disorder, recurrent, moderate; E87.0 Hyperosmolality and hypernatremia; F14.13 Cocaine abuse, unspecified with withdrawal; R65.20 Severe sepsis without septic shock; E86.0 Dehydration; E11.43 Type 2 diabetes mellitus with diabetic autonomic (poly)neuropathy; K31.84 Gastroparesis; E83.42 Hypomagnesemia; I34.0 Nonrheumatic mitral (valve) insufficiency; D64.9 Anemia, unspecified; N18.9 Chronic kidney disease, unspecified; E11.22 Type 2 diabetes mellitus with diabetic chronic kidney disease; F17.200 Nicotine dependence, unspecified, uncomplicated; G25.81 Restless legs syndrome; E11.42 Type 2 diabetes mellitus with diabetic polyneuropathy; R93.1 Abnormal findings on diagnostic imaging of heart and coronary circulation; Z80.3 Family history of malignant neoplasm of breast; Z86.73 Personal history of transient ischemic attack (TIA), and cerebral infarction without residual deficits; Z79.899 Other long term (current) drug therapy; Z79.4 Long term (current) use of insulin; Z98.891 History of uterine scar from previous surgery; Z68.20 Body mass index [BMI] 20.0-20.9, adult

== ENCOUNTER → 2024-12-03 | Outpatient (CLI) | payer OTHER ==
[~2024-12-03] MED LIST changes: +ASPIRIN81 M1 PO
== END | disposition home or self-care (01) ==
LOC: LAB 16:14
PROVIDERS: ATTEND Internal Medicine
DX: E10.65 Type 1 diabetes mellitus with hyperglycemia (principal)

== ENCOUNTER 2025-01-11 10:36 | Inpatient (IN) | payer OTHER ==
[~2025-01-11] VITALS: Ht 157.4 cm; Wt 49.9 kg
[2025-01-11] VITALS (8 sets, daily range): BP systolic 123–184; BP diastolic 94–134
[2025-01-11] MEDS ORDERED: SODIUM CHLORIDE 0.9% 1,000 ML IV ONE (10:45)
[2025-01-11] MEDS ORDERED: Ondansetron Hydrochloride 4 MG/2 ML VIAL IV ONE (10:50)
[2025-01-11] MEDS ORDERED: Pantoprazole Sodium 80 MG,IV 1 EA in SYRINGE INFUSION 20 ML IV ONE (11:00)
[2025-01-11] MEDS ORDERED: Pantoprazole Sodium 40 MG in SODIUM CHLORIDE 0.9% 50 ML IV SCH (11:00)
[2025-01-11 11:09] LABS: MEAN CELL VOLUME 85.5 fl (81.0-99.0); MEAN CORPUSCULAR HGB 27.5 pg (27.0-31.0); MEAN CORPUSCULAR HGB CONC 32.2 g/dl (33.0-37.0); MEAN PLATELET VOLUME 9.7 fl (9.6-12.3); PLATELET COUNT AUTOMATED 369 10*3/uL (130-400); RED BLOOD COUNT 4.33 10*6/uL (4.10-5.10); RED CELL DISTRI WIDTH 13.8 % (0-14.5); WHITE BLOOD COUNT 14.2 10*3/uL (4.8-10.8)
[2025-01-11 11:14] LABS: VENOUS BLOOD GAS O2 SAT 88.8 % (60.0-85.0)
[2025-01-11 11:15] LABS: MANUAL DIFF REFLEX YES
[2025-01-11 11:24] LABS: ACT PARTIAL THROMBO TIME 23.5 SECONDS (20.0-32.1)
[2025-01-11 11:32] LABS: PLATELET SUFFICIENCY NORMAL (NORMAL); STOMATOCYTE FEW; TOTAL CELLS COUNTED 100 #CELLS
[2025-01-11 11:33] LABS: TOXIC GRANULATION SLIGHT
[2025-01-11 11:36] LABS: ALKALINE PHOSPHATASE 143 U/L (46-116); BETA-HCG, QUANT < 3.0 mIU/mL (3-10); BUN 14 mg/dl (9-23); CHLORIDE 98 mmol/L (98-107); LIPASE 21 U/L (12-53); SGPT/ALT 8 U/L (5-49)
[2025-01-11] MEDS ORDERED: MORPHINE Sulfate 2 MG/ML SYR IV ONE (11:55)
[2025-01-11 12:05] LABS: BILIRUBIN Negative (Negative); BLOOD 1+ (Negative); CLARITY Turbid (Clear); COLOR Yellow (Yellow); GLUCOSE 3+ (Negative); KETONE Trace (Negative); LEUKO ESTERASE 1+ (Negative); NITRITE Negative (Negative); PH 6.5 (4.5-8.0); SPECIFIC GRAVITY 1.025 (1.001-1.030); UROBILINOGEN 0.2 E.U./dl (0.0-1.0)
[2025-01-11 12:16] LABS: URINE AMPHETAMINES Negative (1000ng/ml); URINE BARBITURATES Negative (200ng/ml); URINE BENZODIAZEPINES Negative (200ng/ml); URINE CANNABINOIDS (THC) Positive (50ng/ml); URINE COCAINE Negative (300ng/ml); URINE METHADONE Negative (300ng/ml); URINE OPIATES Negative (300ng/ml); URINE PHENCYCLIDINE Negative (25ng/ml)
[2025-01-11 12:31] LABS: BACTERIA TRACE; EPITHELIAL CELLS 41-50
[2025-01-11] MEDS ORDERED: ACETAMINOPHEN 100 ML IV ONE (12:35)
[2025-01-11] MEDS ORDERED: cefTRIAXone Sodium 1 GM/10 ML SYR IV ONE (12:55)
[2025-01-11] MEDS ORDERED: cloNIDine Hydrochloride 0.1 MG TAB PO ONE (13:50)
[2025-01-11] MEDS ORDERED: LORazepam 0.5 MG TAB PO ONE (13:50)
[2025-01-11] MEDS ORDERED: LISINOPRIL 10 MG TAB PO SCH (15:45)
[2025-01-11] MEDS ORDERED: Ondansetron Hydrochloride 4 MG/2 ML VIAL IV PRN (15:45)
[2025-01-11] MEDS ORDERED: Ketorolac Tromethamine 30 MG/ML VIAL IV ONE (15:45)
[2025-01-11] MEDS ORDERED: LORAZEPAM0.5 M1 PO (15:48)
[2025-01-11] MEDS ORDERED: DEXTROSE 10 % IN WATER 250 ML IV PRN (15:50)
[2025-01-11] MEDS ORDERED: DEXTROSE 50% 25 GM/50 ML VIAL IV PRN (15:50)
[2025-01-11] MEDS ORDERED: SODIUM CHLORIDE 0.9% 1,000 ML IV SCH (15:50)
[2025-01-11] MEDS ORDERED: INSULIN REGULAR, HUMAN 1 UNIT/0.01 ML SC SCH (16:30)
[2025-01-11 20:13] LABS: HEMATOCRIT 32.7 % (37.0-47.0)
[2025-01-11] MEDS ORDERED: LORazepam 0.5 MG TAB PO SCH (22:00)
[2025-01-11] MEDS ORDERED: GABAPENTIN 300 MG CAP PO SCH (22:00)
[2025-01-11] MEDS ORDERED: QUEtiapine FUMARATE 50 MG TAB PO SCH (22:00)
[2025-01-12] VITALS (8 sets, daily range): BP systolic 109–176; BP diastolic 11–92
[2025-01-12 05:48] LABS: ALKALINE PHOSPHATASE 104 U/L (46-116); BUN 19 mg/dl (9-23); CHLORIDE 99 mmol/L (98-107); POTASSIUM 4.2 mmol/L (3.4-5.1); TOTAL PROTEIN 5.9 gm/dL (6.0-8.0)
[2025-01-12 06:12] LABS: BASO # 0.1 10*3/uL (0.0-0.1); BASO % 0.6 % (0.0-1.0); EOS % 0.3 % (1.0-4.0); HEMATOCRIT 28.5 % (37.0-47.0); MEAN CELL VOLUME 86.4 fl (81.0-99.0); MEAN CORPUSCULAR HGB 27.3 pg (27.0-31.0); MEAN CORPUSCULAR HGB CONC 31.6 g/dl (33.0-37.0); MEAN PLATELET VOLUME 10.2 fl (9.6-12.3); MONO # 0.5 10*3/uL (0.1-1.0); MONO % 4.1 % (3.0-9.0); NEUT # 8.1 10*3/uL (2.3-7.9); NEUT % 70.6 % (47.0-73.0); PLATELET COUNT AUTOMATED 278 10*3/uL (130-400); RED CELL DISTRI WIDTH 14.3 % (0-14.5); WHITE BLOOD COUNT 11.5 10*3/uL (4.8-10.8)
[2025-01-12 06:36] LABS: SGPT/ALT < 7 U/L (5-49)
[2025-01-12] MEDS ORDERED: SODIUM CHLORIDE 0.9% 1,000 ML IV ONE (06:56)
[2025-01-12] MEDS ORDERED: PROPOFOL 200 MG/20 ML VIAL IV ONE (11:02)
[2025-01-12] MEDS ORDERED: fentaNYL CITRATE 100 MCG/2 ML VIAL IV ONE (11:02)
[2025-01-12] MEDS ORDERED: Lidocaine Hydrochloride 5 ML VIAL IV ONE (11:02)
[2025-01-12] MEDS ORDERED: Midazolam Hydrochloride 2 MG/2 ML VIAL IV ONE (11:02)
[2025-01-12] MEDS ORDERED: cefTRIAXone Sodium 1 GM in SYRINGE INFUSION 10 ML IV SCH (14:00)
[2025-01-12] MEDS ORDERED: PROTONIX IV40 MG IV (15:39)
[2025-01-12] MEDS ORDERED: CIPRO500 MG PO (15:42)
== END 2025-01-12 16:30 | disposition home or self-care (01) | DRG 378 ==
LOC: ED 10:36 → EDHOLD 13:44 → 4E 13:44 → ICCU 14:10 → 4E 17:57
PROVIDERS: Internal Medicine; Surgery; ADMIT Internal Medicine; ATTEND Internal Medicine
PROC: 0DJ08ZZ Inspection of Upper Intestinal Tract, Via Natural or Artificial Opening Endoscopic (ICD-10-PCS; principal; 2025-01-12)
DX: K29.71 Gastritis, unspecified, with bleeding (principal); N39.0 Urinary tract infection, site not specified; F32.A Depression, unspecified; F41.9 Anxiety disorder, unspecified; E10.40 Type 1 diabetes mellitus with diabetic neuropathy, unspecified; E10.43 Type 1 diabetes mellitus with diabetic autonomic (poly)neuropathy; K31.84 Gastroparesis; F12.90 Cannabis use, unspecified, uncomplicated; F17.210 Nicotine dependence, cigarettes, uncomplicated; Z71.6 Tobacco abuse counseling; Z88.6 Allergy status to analgesic agent; Z80.3 Family history of malignant neoplasm of breast; Z79.82 Long term (current) use of aspirin; Z79.899 Other long term (current) drug therapy; Z79.4 Long term (current) use of insulin

== ENCOUNTER 2025-05-11 10:59 | Emergency (ER) | payer OTHER ==
[~2025-05-11] VITALS: Ht 157.4 cm; Wt 59.0 kg
[~2025-05-11 10:59] MED LIST changes: +LORAZEPAM0.5 M1 PO; +PROTONIX IV40 MG IV
[2025-05-11] MEDS ORDERED: Lopressor25 MG PO (11:13)
[2025-05-11] MEDS ORDERED: PRILOSEC20 M1 PO (11:14)
[2025-05-11] MEDS ORDERED: OMNIPOD IJ (11:15)
[2025-05-11] MEDS ORDERED: IOHEXOL 300 MG/ML 100 ML VIAL IV ONE (11:45)
[2025-05-11 11:50] LABS: BASO # 0.1 10*3/uL (0.0-0.1); BASO % 1.0 % (0.0-1.0); EOS # 0.1 10*3/uL (0.0-0.4); EOS % 1.1 % (1.0-4.0); MEAN CELL VOLUME 84.2 fl (81.0-99.0); MEAN CORPUSCULAR HGB 26.6 pg (27.0-31.0); MEAN PLATELET VOLUME 9.5 fl (9.6-12.3); MONO # 0.5 10*3/uL (0.1-1.0); MONO % 5.8 % (3.0-9.0); NEUT # 5.6 10*3/uL (2.3-7.9); NEUT % 59.4 % (47.0-73.0); NUCLEATED RED BLOOD CELL 0.0 % (0.0-0.0); NUCLEATED RED BLOOD CELL 0.0 10*3/uL (0.0-0.0); PLATELET COUNT AUTOMATED 402 10*3/uL (130-400); RED CELL DISTRI WIDTH 13.4 % (0-14.5)
[2025-05-11 12:11] LABS: BUN 43 mg/dl (9-23); SGPT/ALT 11 U/L (5-49)
[2025-05-11] MEDS ORDERED: Lactated Ringer's Solution 1,000 ML IV SCH (12:25)
[2025-05-11] MEDS ORDERED: Cefepime Hydrochloride 2 GM in SODIUM CHLORIDE 0.9% 50 ML IV ONE (13:27)
[2025-05-11] MEDS ORDERED: HYDROmorphONE Hydrochloride 0.5 MG/0.5 ML SYRINGE IV ONE (17:20)
[2025-05-11 19:25] VITALS: BP 137/107
== END 2025-05-11 19:44 | disposition short-term general hospital (02) ==
LOC: ED 10:59
PROVIDERS: Emergency Medicine
DX: H60.02 Abscess of left external ear (principal); H60.12 Cellulitis of left external ear; F17.210 Nicotine dependence, cigarettes, uncomplicated; Z88.6 Allergy status to analgesic agent; Z79.899 Other long term (current) drug therapy; Z79.4 Long term (current) use of insulin; Z98.890 Other specified postprocedural states

== ENCOUNTER 2025-05-25 05:19 | Inpatient (IN) | payer OTHER ==
[~2025-05-25] VITALS: Ht 157.5 cm; Wt 65.5 kg
[2025-05-25] VITALS (7 sets, daily range): BP systolic 78–116; BP diastolic 40–60
[~2025-05-25 05:19] MED LIST changes: +OMNIPOD IJ; +PRILOSEC20 M1 PO
[2025-05-25] MEDS ORDERED: SODIUM CHLORIDE 0.9% 1,000 ML IV ONE ×3 (05:25→07:20)
[2025-05-25] MEDS ORDERED: INSULIN REGULAR, HUMAN 1 UNIT/0.01 ML IV ONE (05:25)
[2025-05-25 06:04] LABS: MEAN CELL VOLUME 116.5 fl (81.0-99.0); MEAN CORPUSCULAR HGB 28.0 pg (27.0-31.0); MEAN PLATELET VOLUME 10.3 fl (9.6-12.3); NUCLEATED RED BLOOD CELL 0.0 % (0.0-0.0); NUCLEATED RED BLOOD CELL 0.0 10*3/uL (0.0-0.0); PLATELET COUNT AUTOMATED 335 10*3/uL (130-400); RED CELL DISTRI WIDTH 13.4 % (0-14.5)
[2025-05-25 06:12] LABS: MANUAL DIFF REFLEX YES
[2025-05-25 06:30] LABS: BILIRUBIN Negative (Negative); BLOOD Negative (Negative); CLARITY Clear (Clear); COLOR Yellow (Yellow); KETONE Trace (Negative); LEUKO ESTERASE Negative (Negative); NITRITE Negative (Negative); PH 5.0 (4.5-8.0); SPECIFIC GRAVITY 1.025 (1.001-1.030); UROBILINOGEN 0.2 E.U./dl (0.0-1.0)
[2025-05-25 06:42] LABS: URINE BARBITURATES Negative (200ng/ml); URINE BENZODIAZEPINES Negative (200ng/ml); URINE CANNABINOIDS (THC) Positive (50ng/ml); URINE COCAINE Negative (300ng/ml); URINE METHADONE Negative (300ng/ml); URINE OPIATES Negative (300ng/ml); URINE PHENCYCLIDINE Negative (25ng/ml)
[2025-05-25 06:49] LABS: BASOPHILS 1 % (0-1); PLATELET SUFFICIENCY NORMAL (NORMAL)
[2025-05-25 06:51] LABS: BUN 50 mg/dl (9-23)
[2025-05-25 06:54] LABS: URINE AMPHETAMINES Negative (1000ng/ml)
[2025-05-25 07:05] LABS: BACTERIA 3+; HYALINE CAST 31-40; WBC 0-2 wbc/hpf (0-5)
[2025-05-25] MEDS ORDERED: INSULIN REGULAR IN 0.9 % NACL 100 ML IV SCH ×2 (07:20→15:25)
[2025-05-25] MEDS ORDERED: SODIUM CHLORIDE 0.9% 1,000 ML IV SCH (12:00)
[2025-05-25] MEDS ORDERED: DEXTROSE 5% SALINE 0.45% 1,000 ML IV SCH (13:05)
[2025-05-25 13:53] LABS: BUN 50.0 mg/dl (9-23); SGPT/ALT 73.0 U/L (5-49)
[2025-05-25] MEDS ORDERED: Ondansetron Hydrochloride 4 MG/2 ML VIAL IV PRN (15:15)
[2025-05-25 16:33] LABS: BUN 49.0 mg/dl (9-23)
[2025-05-25 20:09] LABS: BUN 52.0 mg/dl (9-23)
[2025-05-25] MEDS ORDERED: HEPARIN SODIUM 5,000 UNIT/ML VIAL SC SCH (22:00)
[2025-05-26] VITALS (17 sets, daily range): BP systolic 102–156; BP diastolic 54–96
[2025-05-26 00:56] LABS: BUN 52.0 mg/dl (9-23)
[2025-05-26 04:51] LABS: BUN 50.0 mg/dl (9-23); SGPT/ALT 105.0 U/L (5-49)
[2025-05-26 06:44] LABS: MEAN CORPUSCULAR HGB 27.5 pg (27.0-31.0); MEAN PLATELET VOLUME 9.4 fl (9.6-12.3); NUCLEATED RED BLOOD CELL 0.0 % (0.0-0.0); NUCLEATED RED BLOOD CELL 0.0 10*3/uL (0.0-0.0); PLATELET COUNT AUTOMATED 369 10*3/uL (130-400); RED CELL DISTRI WIDTH 13.2 % (0-14.5)
[2025-05-26 06:48] LABS: MANUAL DIFF REFLEX YES
[2025-05-26 06:49] LABS: MEAN CELL VOLUME 77.1 fl (81.0-99.0)
[2025-05-26 07:12] LABS: BASOPHILS 1 % (0-1)
[2025-05-26 07:14] LABS: PLATELET SUFFICIENCY NORMAL (NORMAL)
[2025-05-26] MEDS ORDERED: Insulin Glargine, Recombinan 1 UNIT/0.01 ML SC ONE ×2 (07:20→15:55)
[2025-05-26] MEDS ORDERED: DEXTROSE 50% 25 GM/50 ML VIAL IV PRN (07:20)
[2025-05-26] MEDS ORDERED: INSULIN LISPRO 1 UNIT/0.01 ML SQ SCH (07:30)
[2025-05-26] MEDS ORDERED: SODIUM CHLORIDE 0.9% 1,000 ML IV SCH ×3 (07:40→16:25)
[2025-05-26 08:18] LABS: BUN 44.0 mg/dl (9-23)
[2025-05-26] MEDS ORDERED: MAGNESIUM SULFATE 50 ML IV ONE ×2 (11:35→18:10)
[2025-05-26 12:30] LABS: BUN 54.0 mg/dl (9-23)
[2025-05-26] MEDS ORDERED: PROPOFOL 200 MG/20 ML VIAL IV ONE (13:11)
[2025-05-26] MEDS ORDERED: Lidocaine Hydrochloride 5 ML VIAL IV ONE (13:11)
[2025-05-26 16:47] LABS: BUN 47.0 mg/dl (9-23)
[2025-05-26] MEDS ORDERED: SODIUM CHLORIDE 0.9% 500 ML IV ONE (16:47)
[2025-05-26] MEDS ORDERED: INSULIN REGULAR IN 0.9 % NACL 100 ML IV SCH (17:20)
[2025-05-26] MEDS ORDERED: Piperacillin Sodium/Tazobact 2.25 GM in SODIUM CHLORIDE 0.9% 50 ML IV SCH (20:00)
[2025-05-26 20:37] LABS: BUN 53.0 mg/dl (9-23)
[2025-05-27] VITALS: BP 123/78
[2025-05-27 00:54] LABS: BUN 50.0 mg/dl (9-23)
[2025-05-27] MEDS ORDERED: DEXTROSE 5% SALINE 0.45% 1,000 ML IV SCH (01:55)
[2025-05-27 03:54] LABS: MEAN CORPUSCULAR HGB 27.0 pg (27.0-31.0); MEAN PLATELET VOLUME 9.3 fl (9.6-12.3); NUCLEATED RED BLOOD CELL 0.0 % (0.0-0.0); NUCLEATED RED BLOOD CELL 0.0 10*3/uL (0.0-0.0); PLATELET COUNT AUTOMATED 263 10*3/uL (130-400); RED CELL DISTRI WIDTH 14.7 % (0-14.5)
[2025-05-27 03:57] LABS: MEAN CELL VOLUME 80.5 fl (81.0-99.0)
[2025-05-27 03:58] LABS: MANUAL DIFF REFLEX YES
[2025-05-27 04:00] VITALS: BP 133/83
[2025-05-27 04:13] LABS: BUN 43.0 mg/dl (9-23)
[2025-05-27 04:20] LABS: BASO # 0.1 10*3/uL (0.0-0.1); BASO % 0.6 % (0.0-1.0); EOS # 0.1 10*3/uL (0.0-0.4); EOS % 0.4 % (1.0-4.0); MEAN CELL VOLUME 79.3 fl (81.0-99.0); MEAN CORPUSCULAR HGB 26.8 pg (27.0-31.0); MEAN PLATELET VOLUME 9.2 fl (9.6-12.3); MONO # 0.7 10*3/uL (0.1-1.0); MONO % 3.7 % (3.0-9.0); NEUT # 14.1 10*3/uL (2.3-7.9); NEUT % 79.9 % (47.0-73.0); NUCLEATED RED BLOOD CELL 0.0 % (0.0-0.0); NUCLEATED RED BLOOD CELL 0.0 10*3/uL (0.0-0.0); PLATELET COUNT AUTOMATED 314 10*3/uL (130-400); RED CELL DISTRI WIDTH 14.6 % (0-14.5)
[2025-05-27 04:34] LABS: PLATELET SUFFICIENCY NORMAL (NORMAL)
[2025-05-27 08:00] VITALS: BP 147/97
[2025-05-27 08:24] LABS: BUN 45.0 mg/dl (9-23)
[2025-05-27 12:00] VITALS: BP 127/79
[2025-05-27 12:16] LABS: BUN 40.0 mg/dl (9-23)
[2025-05-27] MEDS ORDERED: Insulin Glargine, Recombinan 1 UNIT/0.01 ML SC SCH (15:00)
[2025-05-27 16:00] VITALS: BP 158/104
[2025-05-27 16:24] LABS: BUN 34.0 mg/dl (9-23)
[2025-05-27] MEDS ORDERED: SODIUM CHLORIDE 0.9% 1,000 ML IV SCH (19:15)
[2025-05-27 20:00] VITALS: BP 134/80
[2025-05-27 20:17] LABS: BUN 29.0 mg/dl (9-23)
[2025-05-27] MEDS ORDERED: Insulin Glargine, Recombinan 1 UNIT/0.01 ML SC ONE (22:45)
[2025-05-27] MEDS ORDERED: LORazepam 0.5 MG TAB PO SCH (23:10)
[2025-05-28] VITALS: BP 159/98
[2025-05-28 04:00] VITALS: BP 142/80
[2025-05-28 04:27] LABS: BASO # 0.1 10*3/uL (0.0-0.1); BASO % 0.8 % (0.0-1.0); EOS # 0.1 10*3/uL (0.0-0.4); EOS % 1.3 % (1.0-4.0); MEAN CELL VOLUME 81.4 fl (81.0-99.0); MEAN CORPUSCULAR HGB 26.9 pg (27.0-31.0); MEAN PLATELET VOLUME 9.3 fl (9.6-12.3); MONO # 0.5 10*3/uL (0.1-1.0); MONO % 5.5 % (3.0-9.0); NEUT # 5.2 10*3/uL (2.3-7.9); NEUT % 59.9 % (47.0-73.0); NUCLEATED RED BLOOD CELL 0.0 % (0.0-0.0); NUCLEATED RED BLOOD CELL 0.0 10*3/uL (0.0-0.0); PLATELET COUNT AUTOMATED 263 10*3/uL (130-400); RED CELL DISTRI WIDTH 14.9 % (0-14.5)
[2025-05-28 04:50] LABS: BUN 27.0 mg/dl (9-23); SGPT/ALT 95.0 U/L (5-49)
[2025-05-28 08:00] VITALS: BP 153/97
[2025-05-28 12:00] VITALS: BP 153/97
[2025-05-28 17:15] VITALS: BP 166/106
[2025-05-28] MEDS ORDERED: Insulin Glargine, Recombinan 1 UNIT/0.01 ML SC SCH (18:00)
[2025-05-28 20:00] VITALS: BP 135/85
[2025-05-28] MEDS ORDERED: GABAPENTIN 300 MG CAP PO SCH (22:00)
[2025-05-29] VITALS: BP 145/82
[2025-05-29 07:15] LABS: SGPT/ALT 77.0 U/L (5-49)
[2025-05-29 07:46] LABS: BASO # 0.1 10*3/uL (0.0-0.1); BASO % 0.7 % (0.0-1.0); EOS # 0.4 10*3/uL (0.0-0.4); EOS % 6.0 % (1.0-4.0); MEAN CELL VOLUME 81.9 fl (81.0-99.0); MEAN CORPUSCULAR HGB 26.6 pg (27.0-31.0); MEAN PLATELET VOLUME 9.1 fl (9.6-12.3); MONO # 0.4 10*3/uL (0.1-1.0); MONO % 6.0 % (3.0-9.0); NEUT # 3.4 10*3/uL (2.3-7.9); NEUT % 47.9 % (47.0-73.0); NUCLEATED RED BLOOD CELL 0.0 % (0.0-0.0); NUCLEATED RED BLOOD CELL 0.0 10*3/uL (0.0-0.0); PLATELET COUNT AUTOMATED 241 10*3/uL (130-400); RED CELL DISTRI WIDTH 14.6 % (0-14.5)
[2025-05-29 07:50] LABS: BUN 17.0 mg/dl (9-23)
[2025-05-29 08:00] VITALS: BP 150/83
[2025-05-29] MEDS ORDERED: LISINOPRIL 2.5 MG TAB PO SCH (10:00)
[2025-05-29] MEDS ORDERED: MUPIROCIN 15 GM TUBE T SCH (10:00)
== END 2025-05-29 16:30 | disposition home or self-care (01) | DRG 919 ==
LOC: ED 05:19 → EDHOLD 08:00 → ICCU 08:00 → EDHOLD 23:12 → ICCU 23:12 → 5E 05-26 09:31 → ICCU 05-26 17:10
PROVIDERS: Internal Medicine; ADMIT Internal Medicine; ATTEND Internal Medicine
PROC: 0DJ08ZZ Inspection of Upper Intestinal Tract, Via Natural or Artificial Opening Endoscopic (ICD-10-PCS; principal; 2025-05-26)
PROC: 30233N1 Transfusion of Nonautologous Red Blood Cells into Peripheral Vein, Percutaneous Approach (ICD-10-PCS; 2025-05-26)
PROC: 05HB33Z Insertion of Infusion Device into Right Basilic Vein, Percutaneous Approach (ICD-10-PCS; 2025-05-26)
PROC: B54MZZA Ultrasonography of Right Upper Extremity Veins, Guidance (ICD-10-PCS; 2025-05-26)
DX: T85.614A Breakdown (mechanical) of insulin pump, initial encounter (principal); A41.9 Sepsis, unspecified organism; E10.10 Type 1 diabetes mellitus with ketoacidosis without coma; G93.41 Metabolic encephalopathy; K29.01 Acute gastritis with bleeding; K21.01 Gastro-esophageal reflux disease with esophagitis, with bleeding; E46 Unspecified protein-calorie malnutrition; N17.9 Acute kidney failure, unspecified; F17.210 Nicotine dependence, cigarettes, uncomplicated; K31.84 Gastroparesis; E10.40 Type 1 diabetes mellitus with diabetic neuropathy, unspecified; F12.90 Cannabis use, unspecified, uncomplicated; N18.9 Chronic kidney disease, unspecified; E87.8 Other disorders of electrolyte and fluid balance, not elsewhere classified; E83.51 Hypocalcemia; D53.9 Nutritional anemia, unspecified; F41.9 Anxiety disorder, unspecified; E87.5 Hyperkalemia; E10.22 Type 1 diabetes mellitus with diabetic chronic kidney disease; E83.42 Hypomagnesemia; E86.0 Dehydration; F14.10 Cocaine abuse, uncomplicated; Z88.8 Allergy status to other drugs, medicaments and biological substances; Z79.899 Other long term (current) drug therapy; Z79.4 Long term (current) use of insulin; Z79.01 Long term (current) use of anticoagulants; Z86.73 Personal history of transient ischemic attack (TIA), and cerebral infarction without residual deficits; Z79.2 Long term (current) use of antibiotics; Z71.6 Tobacco abuse counseling; Z80.3 Family history of malignant neoplasm of breast; Y83.8 Other surgical procedures as the cause of abnormal reaction of the patient, or of later complication, without mention of misadventure at the time of the procedure; Y92.89 Other specified places as the place of occurrence of the external cause; Z68.26 Body mass index [BMI] 26.0-26.9, adult